=== PATIENT | female | born 1950 ===

== ENCOUNTER 2021-07-27 10:00 | Outpatient (RCR) | payer MEDICARE, SELFPAY | END 2021-07-27 14:04 | disposition home or self-care (01) | LOC: HO.PTCHIC 10:00 | PROVIDERS: PCP Family Medicine; Visit Provider Family Medicine | DX: M62.830 Muscle spasm of back (principal) | CPT/HCPCS: 97110; 97140; 97150; 97161 ==

== ENCOUNTER 2021-11-11 09:49 | Emergency (ER) | payer MEDICARE, SELFPAY ==
--- NOTE | ~2021-11-11 | CT_ITS ---
EXAMINATION: HEAD CT, FACIAL BONE CT AND CERVICAL SPINE CT CLINICAL INFORMATION: Trauma. Fall down stairs. COMPARISON: None TECHNIQUE: Axial images through the head, facial bone and cervical spine without contrast. Sagittal and coronal reconstructions on the technologist workstation were performed. This CT examination was performed using dose optimization techniques as appropriate, variously including the following: *Automated exposure control *Adjustment of mA and/or kV according to patient size (this includes techniques or standardized protocols for targeted exams where dose is matched to indication/reason for exam; i.e. extremities or head) *Use of iterative reconstruction technique Patient dose 131 0 mg/cm. FINDINGS: Head CT: There is no evidence of an extra-axial collection. There is no evidence of intra-axial extra-axial hemorrhage. The ventricles and extra-axial CSF spaces are appropriate. Lemos-white matter differentiation is normal. No mass, mass effect or infarct is seen. No skull fracture is seen. Facial bones: There are bilateral acute appearing nasal bone fractures. No other fracture is seen. Nasal septum is deviated to the left. There is preseptal soft tissue swelling over the inferior right orbit. Post septal soft tissues are normal. Paranasal sinuses, mastoid air cells and middle ears are clear. The temporomandibular joints are normal. Cervical spine: There is mild 2 mm anterior subluxation of C3 with respect to C4. Bone alignment is otherwise normal. No fracture or dislocation is seen. There is degenerative spondylosis and degenerative disc disease at C4-C5, C5-C6 and C6-C7. There are degenerative changes at the C1 dens articulation. There is bilateral facet arthritis, right greater than left. Prevertebral soft tissues are normal. There is pleural and parenchymal scarring at the lung apices. CT/CT cervical spine wo IV con IMPRESSION: Head CT: No acute findings Facial bone CT: Bilateral nasal bone fractures. Preseptal soft tissue swelling over the inferior right orbit. Post septal orbital soft tissues are normal. Cervical spine: Degenerative changes. No fracture or dislocation.
--- NOTE | ~2021-11-11 | XR_ITS ---
EXAMINATION: CR X-RAY HAND AND WRIST RIGHT CLINICAL INFORMATION: Right hand and wrist pain. COMPARISON: None TECHNIQUE: 3 views of the right hand and wrist are obtained. FINDINGS: There is acute, mildly displaced and angulated fracture of the distal radial metaphysis with angulation, apex ventrally. There is mild widening of the distal radial ulnar joint. The distal ulna appears intact. There is moderate soft tissue swelling. XR/XR hand wrist RT IMPRESSION: Acute distal radial metaphysis fracture as detailed above.
--- NOTE | ~2021-11-11 | XR_ITS ---
EXAMINATION: XR KNEE, LEFT CLINICAL INFORMATION: Left knee pain. COMPARISON: None TECHNIQUE: Four views of the left knee. FINDINGS: Mild tricompartmental degenerative joint changes are seen. There is no acute fracture, dislocation or joint effusion. The soft tissues are unremarkable. XR/XR knee LT 4V IMPRESSION: Mild tricompartmental degenerative joint changes. No acute abnormality.
--- NOTE | ~2021-11-11 | CT_ITS ---
EXAMINATION: CT CHEST WITHOUT CONTRAST CLINICAL INFORMATION: Fall. Rule out rib fracture. COMPARISON: None TECHNIQUE: Multidetector volumetric CT imaging of the chest was done. Axial MIP volume rendering provided. Sagittal and coronal reformatted images were obtained. This CT examination was performed using dose optimization techniques as appropriate, variously including the following: *Automated exposure control *Adjustment of mA and/or kV according to patient size (this includes techniques or standardized protocols for targeted exams where dose is matched to indication/reason for exam; i.e. extremities or head) *Use of iterative reconstruction technique DLP: 278 unremarkable mGy-cm FINDINGS: LUNGS: There is biapical pleural and parenchymal scarring. The lungs are otherwise clear. MEDIASTINUM: The mediastinum is normal. Normal heart size. No pericardial effusion. Normal caliber thoracic aorta. No adenopathy. No mediastinal fluid. CORONARY ARTERY CALCIFICATION: None visualized on this study. PLEURA: There is no pleural effusion. No pneumothorax. AXILLA: No lymphadenopathy. UPPER ABDOMEN: See report from CT of the abdomen and pelvis the same day OSSEOUS STRUCTURES: There are degenerative changes of the thoracic spine. No fracture is seen. CT/CT chest wo IV con IMPRESSION: No acute findings. Fleischner guidelines were followed.
--- NOTE | ~2021-11-11 | MR_ITS ---
EXAMINATION: MR CERVICAL SPINE WITHOUT CONTRAST CLINICAL INFORMATION: C3 subluxation COMPARISON: Same day CT cervical spine TECHNIQUE: MRI of the cervical spine was obtained using routine sequences without contrast. FINDINGS: Cervical straightening. Trace stepwise anterolisthesis of C3 on C4 and C4 on C5, trace retrolisthesis of C5 on C6, and trace anterolisthesis of C7 on T1. There is 2 mm anterolisthesis of C3 on C4. No suspicious marrow signal or focal osseous lesion. The vertebral body heights are maintained. Mild multilevel degenerative disc space narrowing. The cervical spinal cord is normal in caliber and signal No prevertebral edema. The anterior and posterior discoligamentous structures are intact. No epidural fluid collection or hematoma. Limited evaluation of the soft tissues of the neck without demonstrated abnormalities. The flow voids of the major cervical vessels are maintained. Normal appearance of the cervicomedullary junction and visualized posterior fossa SPINAL LEVELS: C2-C3: Severe right facet arthropathy. No significant spinal canal or neural foraminal narrowing C3-C4: Anterolisthesis. Severe right facet arthropathy and uncovertebral hypertrophy. No significant spinal canal stenosis. Moderate right neural foraminal narrowing. C4-C5: Anterolisthesis. Severe bilateral facet arthropathy. No significant spinal canal or neural foraminal narrowing C5-C6: Disc osteophyte complex, mild facet arthropathy, uncovertebral hypertrophy. Mild to moderate bilateral neural foraminal narrowing. Effacement of the ventral thecal sac without significant canal stenosis. C6-C7: Disc osteophyte complex and uncovertebral hypertrophy. Mild bilateral neural foraminal narrowing. No significant spinal canal stenosis C7-T1: No significant spinal canal or neural foraminal narrowing MR/MR cervical spine wo con IMPRESSION: 1. No evidence of traumatic discoligamentous injury of the cervical spine. Multilevel mild spondylolisthesis including 2 mm anterolisthesis of C3 on C4 is degenerative in nature and related to degenerative facet disease. 2. Multiple degenerative changes of the cervical spine as detailed above. No significant spinal canal stenosis, cord compression, or cord signal abnormality.
--- NOTE | ~2021-11-11 | CT_ITS ---
EXAMINATION: CT ABDOMEN AND PELVIS WITHOUT CONTRAST CLINICAL INFORMATION: Fall down stairs. Question pelvic or hip fracture. COMPARISON: None TECHNIQUE: Multidetector volumetric imaging was performed from the superior aspect of the liver through the pubic symphysis. Sagittal and coronal reformatted images were obtained on the technologist's workstation. This CT examination was performed using dose optimization techniques as appropriate, variously including the following: *Automated exposure control *Adjustment of mA and/or kV according to patient size (this includes techniques or standardized protocols for targeted exams where dose is matched to indication/reason for exam; i.e. extremities or head) *Use of iterative reconstruction technique DLP: 509 mGy-cm FINDINGS: LUNG BASES: The visualized lung bases are unremarkable. LIVER, GALLBLADDER, AND BILIARY TREE: The liver is slightly enlarged and low in attenuation suggestive of fatty infiltration. Small calcification in the right lobe. No focal liver lesion or biliary duct dilatation. Normal gallbladder. PANCREAS: Unremarkable. SPLEEN: Unremarkable. ADRENAL GLANDS: Unremarkable. KIDNEYS AND URETERS: The kidneys are normal in size, shape, and attenuation. No hydronephrosis, hydroureter, or calculi seen. No perinephric stranding. BLADDER: Unremarkable. GASTROINTESTINAL TRACT: The small and large bowel are unremarkable. The appendix is not seen. No ascites or free air.. ABDOMINAL WALL: No significant hernia is appreciated. LYMPH NODES: Normal. VASCULAR: Unremarkable. PELVIC VISCERA: Unremarkable. OSSEOUS STRUCTURES: Degenerative changes of the spine and hip joints. No fracture or dislocation. CT/CT abdomen pelvis wo IV con IMPRESSION: No acute findings. Degenerative changes of the spine and hip joints. No fracture or dislocation. Fleischner guidelines were followed.
[2021-11-11 10:00] VITALS: BP 114/73; PULSE 70; RESP 18; TEMP 36.7; O2SAT 97
[2021-11-11 10:04] VITALS: BP 114/73; BP 123/74; PULSE 67; PULSE 97; RESP 16; TEMP 36.7; O2SAT 97; O2SAT 99; BMI 23.7
--- NOTE | 2021-11-11 10:11 | PC.NURSE ---
Addendum entered by Brunilda Willis 11/11/21 10:21: Pt is A AND O X 4. Pupils are PERLLA. LS are clear, resp even and non-labored, heart sound regular,ablations and small amount of dry blood noted around the nose. No hematoma noted. Pt has a c-collar intact, Pt c/o of numbness in the right cheek. bowel sounds present in all 4 quads, non tender. skin is pink, dry and warm. No edema noted, equal strength in all extremities,brace to the right forearm placed by EMS. Proximately 1/2 inch abrasion noted on the left knee. Pt also c/0 of pain in the right knee and thumb. MLP (LOBITO) aware. Pt aware of plan of care. Original Note: Pt is A & O X 4. LS are clear, resp is even and nonlabored, skin is red, dry and warm. no edema. equal strength in all extremities, i\2 inche of a scratch noted on the left knee. Numbness in right cheek, pain in right thumb and nose. Scratch michaels and a small amount of dry blood noted around the nose.
--- NOTE | 2021-11-11 10:21 | ED_ITS ---
HPI - General Adult General Chief complaint: Fall Stated complaint: FALL Time Seen by Provider: 11/11/21 10:05 Source: patient Mode of arrival: ambulatory Limitations: no limitations History of Present Illness HPI narrative: 71 yold female with pmh of peptic ulcer presents to the ED for fall. patient states she was at home dong work and than she fell down the stairs and landng on her face. patient admits to nasal bleeding that resolved. Patient states now having right wrist and left knee pain. patient denies any chest pain, shortness of breath, abdominal pain, dizziness, or headache before faling. patient states she tripped over her shoes and caused her to roll down the stairs. Related Data Previous Rx's Medication Instructions Recorded clindamycin HCl 300 mg capsule 300 mg PO TID 10 days #30 caps 11/11/21 oxycodone 5 mg capsule 5 mg PO TID PRN pain 3 days #9 caps 11/11/21 Allergies Allergy/AdvReac Type Severity Reaction Status Date / Time NSAIDS (Non-Steroidal AdvReac Abdominal Verified 11/11/21 10:11 Anti-Inflamma Pain Review of Systems Review of Systems: RIght wrist pain, left knee pain, resolved nasal bleed. Yes all other systems are reviewed and are negative [facility] Social History Social History Patient Tobacco Use Status: Never used Tobacco Advance Directives: Yes Advance Directives Information Provided: Yes Advance Directives on File: No Physical Exam ED Vital Signs: Vital Signs - 24 hr 11/11/21 10:00 11/11/21 10:04 11/11/21 13:32 Temperature 98.0 F 98.0 F Pulse Rate 70 67 66 Respiratory Rate 18 16 Blood Pressure 114/73 114/73 149/75 H Pulse Oximetry 97 97 98 Oxygen Delivery Method Room Air Room Air Room Air 11/11/21 14:59 Temperature 97.7 F Pulse Rate 71 Respiratory Rate 12 Blood Pressure 153/70 H Pulse Oximetry 97 Oxygen Delivery Method Room Air BMI result Body Mass Index 23.7 Const General: cooperative, healthy appearing, comfortable, no acute distress, well developed, alert, awake and Physically active Orientation/consciousness: patient oriented x3 HENMT Head: Yes normal to inspection, Yes No palpable skull fracture present and Yes normocephalic Ears: hearing grossly normal bilaterally, external ears normal, TM's normal bilaterally, EAC's normal, mastoids normal and no periauricular adenopathy General nose exam: Epistaxis present (dried blood. bleeding resolved) bilaterally Eyes General: appearance normal, both eyes and all related structures Neck Neck: Yes normal visual inspection, Yes full ROM, Yes no lymphadenopathy, Yes no meningeal signs, Yes trachea midline, Yes supple, No anterior neck swelling and No tender Chest Chest palpation & inspection: normal inspection of the chest and normal palpation of entire chest wall Resp Effort & Inspection: normal respiratory effort and able to speak in complete sentences Auscultation: clear to auscultation bilaterally Cardio Jugular venous distension: no JVD Heart sounds: S1 normal heart sound present and S2 normal heart sound present GI Inspection: Yes normal to inspection and No abdominal wall ecchymosis Palpation (GI): Soft to palpation, not firm, nontender, no guarding and not rigid General: No CVA tenderness and Yes no CVA tenderness Back/Spine/Pelvis Back: no CVA tenderness, No CVA tenderness and No back tenderness Skin General skin exam: no rashes or lesions noted and elasticity normal Neuro General: patient oriented x3, gait normal, no meningeal signs and CN's II-XI intact bilaterally Cranial nerves: Yes CN's II-XII intact bilaterally Extrem Other: Patient has complete range of motion of bilateral lower extremities. Elbow/forearm/wrist images: 1. tenderness on palpation. Patient has capillary refill intact of all fingers. Has sensation in all fingers. Vascular exam is intact. Motor exam limited due to pain. Knee images: 1. mild tenderness on palpation. negative for swelling/redness. Psych Appearance: grossly normal, well kempt and not disheveled Course Course Course Narrative: Mechanical fall. Will send for imaging. Oxycodone ordered Reevaluation(s) Reevaluation #1: Patient images came back. Head CT chest CT and on CT came back normal. Hand wrist x-ray shows radial fracture. Spoke with orthopedic RAMESH Reyes who states patient will need schedule surgery sometime this week after improving swelling. She recommend good splint and outpatinet follow up. SPoke with Dr. Jerez covering attendant does not recommend Reduction. RAMESH Reyes will call patient for office clinic appointment. Cervical spine CT shows subluxation of C3 over C4. Patient has severe arthritis but unaware if subluxation is new. Will send for MR. Patient has nasal fracture. Time: 13:02 Reevaluation #2: Patient placed in splint. Cervical spine MRI negative for subluxation. Patient will be discharged. Patient can walk around. Placed Case Management order for follow-up and to add possible Home Services VN if needed. patient can not tylenol due to liver as per patient. patient states allergic reaction to amoxicillin. Time: 16:02 Medical Decision Making MDM Narrative Medical decision making narrative: nasal fracture. wrist fracture Discharge Plan Discharge Clinical Impression: Fracture, nasal, Fracture of wrist Patient Disposition: Home, Self-Care Additional Instructions: You will need follow up with ENT specialists for nasal fracture. ALso you will need follow up with [facility] for wrist surgeon. Return to the ED any heada edgar, bluish/black discloration of finger, abdominal pain, rectal bleeding, coughing/vomitting blood, chest pain, shortness of breath, or any other concerning symptoms. Recommend ice on right side of face to help with swelling. Prescriptions: New oxycodone 5 mg capsule 5 mg PO TID PRN (Reason: pain) 3 Days Qty: 9 0RF Rx Instructions: Partial Fill upon patient request. side effect is drowsiness. clindamycin HCl 300 mg capsule 300 mg PO TID 10 Days Qty: 30 0RF [place] [facility] [place] [facility] [Provider Group] (Right wrist fracture) Pedro Winter [Physician] - (Bilateral nasal fractures) Stand Alone Forms: Work/School Release Print Language: Yi
--- NOTE | 2021-11-11 11:11 | PC.NURSE ---
Pt went to xray via stretcher.
--- OUTSIDE RECORDS SUMMARY | 2021-11-11 11:23 | XMS_ITS | Continuity of Care Document ---
:1950 Author Organization [facility] Address [address] [place] [address]- Care Team Providers Name Role Phone Linda XIE, Gayle Francois Primary Care Physician Encounter [facility] Date(s): 08/04/19 - 08/11/19 [facility] [address] [place] [address]- [facility] Attending Physician: Gayle Mckeon MD Allergies, Adverse Reactions, Alerts Substance Reaction Severity Status doxycycline GI effects Active amoxicillin hives Active omeprazole Active Alomide Active Latex Active Lactose Active Immunizations Given and Recorded Vaccine Date Status Refusal Reason Influenza Virus Vaccine (oldterm) 11/23/18 Recorded pneumococcal 23-valent vaccine1 05/11/18 Given hepatitis B adult vaccine2 05/11/18 Given zoster vaccine, inactivated 04/23/18 Recorded influenza virus vaccine, inactivated3 11/12/17 Recorded influenza virus vaccine, inactivated4, 5 03/30/16 Recorde d influenza virus vaccine, inactivated6 11/09/14 Recorded influenza virus vaccine, inactivated 11/20/13 Given influenza virus vaccine, inactivated7 11/12/12 Given influenza virus vaccine, inactivated8 11/05/11 Given influenza virus vaccine, inactivated9 12/29/10 Given influenza virus vaccine, [id number] 11/14/09 Given pneumococcal 13-valent vaccine 09/14/15 Given tetanus/diphtheria/pertussis, acel(Tdap)11 07/21/14 Given Fluzone (oldterm) 11/08/08 Given tetanus-diphtheria toxoids (Td)12 02/10/07 Given 1Result Comment: [facility]#[id number] Comment: [facility]#[id number] Comment: [12/01/2017] Done at [facility]. High dose.4Location History: [facility] [address] [place], [place] [address]Ltlgjg Comment: [04/02/2016] No route or location specified.6Result Comment: [11/17/2014] [facility] [id number] Comment: [11/12/2012] Vis given [id number] Note: VIM dated 08/12/11 GIVEN TODAY9 Admin Note: 09/04/10 VIM GIVEN TODAY [id number] Note: vis given 09-20-910 Result Comment: [07/21/2014] ins waiver [id number] Note: [facility] vim 12/29/07 Medications Evi By Mouth, 0 Refills, Maintenance, 10/27/18 10:19:53 EDT Start Date: 10/27/18 Status: OrderedCompression Stockings See Instructions, # 2 pair, Refills 1, Tot. Refills 1, Maintenance, surgical, thigh high length 20-30 mm Hg, 06/03/13 11:21:37 Start Date: 06/03/13 Status: Ordereddiclofenac 1% topical gel = 2 Gm, Topically, 4 times a day, # 100 Gm, 1 Refills, Maintenance, 02/19/19 12:11:00 EST, [facility] # [facility], 160, cm, 02/17/19 16:12:00 EST, Height, 60.2, kg, 11/18/18 8:50:00 EDT, Dry Weight Start Date: 02/19/19 Status: Ordereddiclofenac sodium 75 mg oral delayed release tablet 1 tablet = 75 mg, By Mouth, 2 times a day, with food, # 10 tablet, 0 Refills, Maintenance, 02/17/19 16:29:00 EST, EC Tablet, [facility] # [facility], 160, cm, 02/17/19 16:12:00 EST, Height, 60.2, kg, 11/18/18 8:50:00 EDT, Dry Weight Start Date: 02/17/19 Stop Date: 02/22/19 Status: Orderedestradiol 0.1 mg/g vaginal cream See Instructions, Insert 1 gram Vaginally weekly or 1/2 gram twice weekly 90 days, # 42.5 Gm, 3 Refills, Maintenance, 11/16/18 14:32:49 EDT, please dispense compounded med; we understand that FDA approved med is available; we choose this med as it is... Start Date: 11/16/18 Status: OrderedFamotidine By Mouth, Daily, 0 Refills, Maintenance, 01/06/18 11:35:20 EST Start Date: 01/06/18 Status: Orderedfamotidine 20 mg oral tablet 20 mg, 1, tablet, By Mouth, 2 times a day, # 180 tablet, Refills 3, Tot. Refills 3, Maintenance, 10/16/18 16:38:27 EDT, Route to Pharmacy Electronically, [id number], [facility] Start Date: 10/16/18 Status: OrderedKnee Support See Instructions, # 1 each, Maintenance, R knee pn Playmaker 2, S REF: [id number], 05/24/13 17:02:10,Compound Start Date: 05/24/13 Status: OrderedPrevacid 30 mg oral enteric coated capsule 1 capsule = 30 mg, By Mouth, Daily, # 90 capsule, 3 Refills, Maintenance, 04/26/19 12:56:00 EDT, EC Capsule, [facility] # [facility], 163.5, cm, 02/24/19 15:19:00 EST, Height, 60.2, kg, 11/18/18 8:50:00 EDT, Dry Weight Start Date: 04/26/19 Status: OrderedRestasis 0.05% ophthalmic emulsion 1 drops, Eyes, Both, Every 12 hours, 0 Refills, Maintenance, 06/23/15 14:35:19 Start Date: 06/23/15 Status: OrderedSingulair By Mouth, Daily before dinner, 0 Refills, Maintenance Start Date: 07/14/12 Status: Ordered Problem List Condition Effective Dates Status Health Status Informant Atrophic vaginitis(Confirmed) Active Esophageal spasm(Confirmed) Active Low back syndrome(Confirmed) Active Migraine(Confirmed) Active Osteoarthritis(Confirmed) Active Osteoporosis(Confirmed) Active Seasonal allergic rhinitis(Confirmed) Active Varicose veins(Confirmed) 11/08/08 Active Vital Signs Most recent to oldest [Reference Range]: 1 Height 163.5 cm (08/04/19 9:27 AM) Social History Social History Type Response Smoking Status Never smoker; Tobacco user i n household: No entered on: 07/21/13 Sex
--- OUTSIDE RECORDS SUMMARY | 2021-11-11 11:23 | XMS_ITS | Continuity of Care Document ---
:1950 Author Organization [facility] Address [address] [place] [address]- Care Team Providers Name Role Phone Linda XIE, Gayle Francois Primary Care Physician Encounter [facility] Date(s): 08/04/19 - 09/03/19 [facility] [address] [place] [address]- [facility] Attending Physician: AdmtrRaysa Allergies, Adverse Reactions, Alerts Substance Reaction Severity Status doxycycline GI effects Active amoxicillin hives Active Lactose Active omeprazole Active Alomide Active Latex Active Immunizations Given and Recorded Vaccine Date [...] vaccine, inactivated9 12/29/10 Given influenza virus vaccine, [id number] 11/14/09 Given pneumococcal 13-valent vaccine 09/14/15 Given tetanus/diphtheria/pertussis, acel(Tdap)11 07/21/14 Given Fluzone (oldterm) 11/08/08 Given tetanus-diphtheria toxoids (Td)12 02/10/07 Given 1Result Comment: [facility]#[id number] Comment: [facility]#[id number] Comment: [12/01/2017] Done at [facility]. High dose.4Location History: [facility] [address] [place], [place] [address]Ifaiij Comment: [04/02/2016] No route or location specified.6Result Comment: [11/17/2014] [facility] [id number] Comment: [11/12/2012] Vis given [id number] Note: VIM dated 08/12/11 GIVEN TODAY9 Admin Note: 09/04/10 VIM GIVEN TODAY [id number] Note: vis given 09-20-910 Result Comment: [07/21/2014] ins waiver [id number] Note: [facility] vim 12/29/07 Medications Evi [...] Gm, 1 Refills, Maintenance, 02/19/19 12:11:00 EST, [facility] # [facility], 160, cm, 02/17/19 16:12:00 EST, Height, 60.2, kg, 11/18/18 8:50:00 EDT, Dry Weight Start Date: 02/19/19 Status: Ordereddiclofenac sodium 75 mg oral delayed release tablet 1 tablet = 75 mg, By Mouth, 2 times a day, with food, # 10 tablet, 0 Refills, Maintenance, 02/17/19 16:29:00 EST, EC Tablet, [facility] # [facility], 160, cm, 02/17/19 [...] 10/16/18 16:38:27 EDT, Route to Pharmacy Electronically, [id number], [facility] Start Date: 10/16/18 Status: OrderedKnee Support See Instructions, # 1 each, Maintenance, R knee pn Playmaker 2, S REF: [id number], 05/24/13 17:02:10,Compound Start Date: 05/24/13 Status: OrderedPrevacid 30 mg oral enteric coated capsule 1 capsule = 30 mg, By Mouth, Daily, # 90 capsule, 3 Refills, Maintenance, 04/26/19 12:56:00 EDT, EC Capsule, [facility] # [facility], 163.5, cm, 02/24/19 [...] allergic rhinitis(Confirmed) Active Varicose veins(Confirmed) 11/08/08 Active Social History Social History Type Response Smoking Status Never smoker; Tobacco user i n household: No entered on: 07/21/13 Sex
--- OUTSIDE RECORDS SUMMARY | 2021-11-11 11:23 | XMS_ITS | Continuity of Care Document ---
:1950 Author Organization [facility] Address [address] [place] [address], [address] [place] [address]- Care Team Providers Name Role Phone Linda XIE, Gayle Francois Primary Care Physician Encounter [facility] Date(s): 01/22/21 - 02/21/21 [facility] [address] [place] [address], [address] [place] [address] Attending Physician: Raysa Rodgers Admitting Physician: Raysa Rodgers Referring Physician: AdmtrRaysa Allergies, Adverse Reactions, Alerts Substance Reaction Severity Status doxycycline GI effects Active amoxicillin hives Active omeprazole Active Lactose Active Alomide Active Latex Active Immunizations Given [...] vaccine, inactivated9 12/29/10 Given influenza virus vaccine, [id number] 11/14/09 Given pneumococcal 13-valent vaccine 09/14/15 Given tetanus/diphtheria/pertussis, acel(Tdap)11 07/21/14 Given Fluzone (oldterm) 11/08/08 Given tetanus-diphtheria toxoids (Td)12 02/10/07 Given 1Result Comment: [facility]#[id number] Comment: [facility]#[id number] Comment: [12/01/2017] Done at [facility] High dose.4Location History: [facility] [address] [place], [place] [address]Fsckkk Comment: [04/02/2016] No route or location specified.6Result Comment: [11/17/2014] [facility] [id number] Comment: [11/12/2012] Vis given [id number] Note: VIM dated 08/12/11 GIVEN TODAY9 Admin Note: 09/04/10 VIM GIVEN TODAY [id number] Note: vis given 09-20-910 Result Comment: [07/21/2014] ins waiver [id number] Note: [facility] vim 12/29/07 Medications betamethasone topical dipropionate 0.05% cream 0 Refills, Maintenance, 06/21/20 16:29:00 EDT, Partial fill upon patient request if the prescriptionis for a schedule II opioid drug. Start Date: 06/21/20 Status: OrderedCompression Stockings See Instructions, # 2 pair, Refills 1, Tot. Refills 1, Maintenance, surgical, thigh high length 20-30 mm Hg, 06/03/13 11:21:37 Start Date: 06/03/13 Status: OrderedEstrace Vaginal Cream 0.1 mg/g See Instructions, 1 Gm Vaginally Daily at bedtime for two weeks then twice weekly, # 42.5 Gm, 4 Refills, Maintenance, 01/22/21 11:54:00 EST, [facility], Patient sensitive to inactive ingredients of manufacturers drugs., 163.5, c... Start Date: 01/22/21 Status: Orderedestradiol 0.1 mg/g vaginal cream See Instructions, Insert 1 gram Vaginally weekly or 1/2 gram twice weekly 90 days, # 42.5 Gm, 4 Refills, Maintenance, 06/13/20 10:53:00 EDT, [facility], please dispense compounded med; we understand that FDA approved med is avai... Start Date: 06/13/20 Status: Orderedhydrocortisone 2.5% topical cream 0 Refills, Maintenance, 06/21/20 16:29:00 EDT, Partial fill upon patient request if the prescriptionis for a schedule II opioid drug. Start Date: 06/21/20 Status: OrderedKnee Support See Instructions, # 1 each, Maintenance, R knee pn Playmaker 2, S REF: [id number], 05/24/13 17:02:10,Compound Start Date: 05/24/13 Status: OrderedPrevacid 30 mg oral enteric coated capsule 1 capsule = 30 mg, By Mouth, Daily, # 90 capsule, 3 Refills, Maintenance, 04/13/20 13:53:00 EST, EC Capsule, [facility], 163.5, cm, 01/27/20 9:12:00 EST, Height, 60.2, kg, 11/18/18 8:50:00 EDT, Dry Weight Start Date: 04/13/20 Status: OrderedRestasis 0.05% ophthalmic emulsion 1 drops, Eyes, Both, Every 12 hours, 0 Refills, Maintenance, 06/23/15 14:35:19 Start Date: 06/23/15 Status: OrderedSingulair By Mouth, Daily before dinner, 0 Refills, Maintenance Start Date: 07/14/12 Status: Ordered Problem List Condition Effective Dates Status Health Status Informant Atrophic vaginitis(Confirmed) Active Esophageal spasm(Confirmed) Active GERD with esophagitis(Confirmed) Active Low back syndrome(Confirmed) Active Migraine(Confirmed) Active NAFLD (nonalcoholic fatty liver Active disease)(Confirmed) Osteoarthritis(Confirmed) Active Osteoporosis(Confirmed) Active Seasonal allergic rhinitis(Confirmed) Active Varicose veins(Confirmed) 11/08/08 Active Social History Social History Type Response Smoking Status Never smoker; Tobacco user i n household: No entered on: 07/21/13 Sex
--- OUTSIDE RECORDS SUMMARY | 2021-11-11 11:23 | XMS_ITS | Continuity of Care Document ---
:1950 Author Organization [facility] Address [address] [place] [address]- Care Team Providers Name Role Phone Linda XIE, Gayle Francois Primary Care Physician [phone] Encounter [facility] Date(s): 09/17/21 - 10/17/21 [facility] [address] [place], [place] [address] Allergies, Adverse Reactions, Alerts Substance Reaction Severity Status doxycycline GI effects Active amoxicillin hives Active omeprazole Active Alomide Active Latex Active Lactose Active Immunizations Given and Recorded Vaccine Date Status Refusal Reason SARS-CoV-2 mRNA ([id number]) vax 06/06/21 Recorde d influenza virus vaccine, inactivated 12/07/20 Recorded influenza virus vaccine, inactivated 11/14/18 Recorded influenza virus vaccine, inactivated1 11/12/17 Recorded influenza virus vaccine, inactivated 11/17/16 Recorded influenza virus vaccine, inactivated2, 3 03/30/16 Recorde d influenza virus vaccine, inactivated4 11/09/14 Recorded influenza virus vaccine, inactivated 11/20/13 Given influenza virus vaccine, inactivated5 11/12/12 Given influenza virus vaccine, inactivated6 11/05/11 Given influenza virus vaccine, inactivated7 12/29/10 Given influenza virus vaccine, inactivated8 11/14/09 Given SARS-CoV-2 (COVID-19) mRNA BNT-162b2 vac 11/04/20 Recorde d SARS-CoV-2 (COVID-19) mRNA BNT-162b2 vac 04/29/20 Recorde d SARS-CoV-2 (COVID-19) mRNA BNT-162b2 vac 04/08/20 Recorde d Influenza Virus Vaccine (oldterm) 11/23/18 Recorded pneumococcal 23-valent vaccine9 05/11/18 Given hepatitis B adult [id number] 05/11/18 Given zoster vaccine, inactivated 04/23/18 Recorded pneumococcal 13-valent vaccine 09/14/15 Given tetanus/diphtheria/pertussis, acel(Tdap)11 07/21/14 Given Fluzone (oldterm) 11/08/08 Given tetanus-diphtheria toxoids (Td)12 02/10/07 Given 1Result Comment: [12/01/2017] Done at [facility]. High dose.2Location History: [facility] [address] [place], [place] [address]Jznugy Comment: [04/02/2016] No route or location specified.4Result Comment: [11/17/2014] [facility] [id number] Comment: [11/12/2012] Vis given Zgqn2Kuquj Note: VIM dated 08/12/11 GIVEN TODAY7 Admin Note: 09/04/10 VIM GIVEN TODAY [id number] Note: vis given Result Comment: [facility] [place] 2]#[id number] Comment: [facility][[place] 2]#[id number] Comment: [07/21/2014] ins waiver [id number] Note: [facility] vim 12/29/07 Medications betamethasone [...] Refills, Maintenance, 01/22/21 11:54:00 EST, [facility], Patient sensitive to inactive ingredients of manufacturers drugs., 163.5, c... Start Date: 01/22/21 Status: Orderedestradiol 0.1 mg/g vaginal cream See Instructions, Insert 1 gram Vaginally weekly or 1/2 gram twice weekly 90 days, # 42.5 Gm, 4 Refills, Maintenance, 06/13/20 10:53:00 EDT, [facility], please dispense compounded med; we understand that FDA approved med is avai... Start Date: 06/13/20 Status: Orderedfamotidine 20 mg oral tablet 20 mg, 1, tablet, By Mouth, 2 times a day, # 180 tablet, Refills 3, Tot. Refills 3, Maintenance, 04/27/21 10:46:00 EDT, Route to Pharmacy Electronically, [facility] # [facility], 163.5, cm, 01/22/21 11:50:00 EST, Height, 59.5, kg, 01/22/21 11:50:00 EST, D... Start Date: 04/27/21 Status: Orderedhydrocortisone 2.5% topical cream 0 Refills, [...] Daily, # 90 capsule, 3 Refills, Maintenance, 04/20/21 9:59:00 EST, EC Capsule, [facility] # [facility], 163.5, cm, 01/22/21 11:50:00 EST, Height, 59.5, kg, 01/22/21 11:50:00 EST, Dry Weight Start Date: 04/20/21 Status: OrderedRestasis 0.05% ophthalmic emulsion 1 drops, [...] n household: No entered on: 07/21/13 Sex Care Team PersonnelName: Linda XIE, Gayle Francois Address: [address] [place] [id number]
--- OUTSIDE RECORDS SUMMARY | 2021-11-11 11:23 | XMS_ITS | Continuity of Care Document ---
:1950 Author Organization [facility] Address [address] [place] [address]- Care Team Providers Name Role Phone Linda XIE, Gayle Francois Primary Care Physician [place] [facility] [place] 06[place]30/21 [facility] [address] [place], [place] [address] Attending Physician: AdmtrRaysa Allergies, Adverse Reactions, Alerts [...] vaccine, inactivated9 12/29/10 Given influenza virus vaccine, yaygcxdoipe69 11/14/09 Given pneumococcal 13-valent vaccine 09/14/15 Given tetanus/diphtheria/pertussis, acel(Tdap)11 07/21/14 Given Fluzone (oldterm) 11/08/08 Given tetanus-diphtheria toxoids (Td)12 02/10/07 Given 1Result Comment: [facility]#[id number] Comment: [facility]#[id number] Comment: [12/01/2017] [facility] at [facility] High dose.4Location History: [facility] [address] [place], [place] [address]Zfpvnv Comment: [04/02/2016] No route or location specified.6Result Comment: [11/17/2014] [facility] aziuacw8Fshbpp Comment: [11/12/2012] Vis given Gnrk2Yvnej Note: VIM dated 08/12/11 GIVEN TODAY9 Admin Note: 09/04/10 VIM GIVEN TODAY [id number] Note: vis given 09-20-910 Result Comment: [07/21/2014] ins waiver cjbtpb20Hivly Note: [employer] vim 12/29/07 Medications betamethasone [...] Refills, Maintenance, 01/22/21 11:54:00 EST, [facility], Patient sensitive to inactive ingredients of manufacturers drugs., 163.5, c... Start Date: 01/22/21 Status: Orderedestradiol 0.1 mg/g vaginal cream See Instructions, Insert 1 gram Vaginally weekly or 1/2 gram twice weekly 90 days, # 42.5 Gm, 4 Refills, Maintenance, 06/13/20 10:53:00 EDT, [facility], please dispense compounded med; we understand that FDA approved med is avai... Start Date: 06/13/20 Status: Orderedfamotidine 20 mg oral tablet 20 mg, 1, tablet, By Mouth, 2 times a day, # 180 tablet, Refills 3, Tot. Refills 3, Maintenance, 04/27/21 10:46:00 EDT, Route to Pharmacy Electronically, [facility], 163.5, cm, 01/22/21 11:50:00 [...] Refills, Maintenance, 04/20/21 9:59:00 EST, EC Capsule, [facility], 163.5, cm, 01/22/21 [...]
--- OUTSIDE RECORDS SUMMARY | 2021-11-11 11:23 | XMS_ITS | Continuity of Care Document ---
:1950 Author Organization [facility] Address [address] [place] [address]- Care Team Providers Name Role Phone Linda XIE, Gayle Francois Primary Care Physician Encounter [facility] [place] Date(s): 08/17/20 - 09/16/20 [facility] [address] [place], [place] [address] Allergies, Adverse Reactions, Alerts Substance Reaction Severity [...] vaccine, inactivated9 12/29/10 Given influenza virus vaccine, jbunfwlnghc25 11/14/09 Given pneumococcal 13-valent vaccine 09/14/15 Given tetanus/diphtheria/pertussis, acel(Tdap)11 07/21/14 Given Fluzone (oldterm) 11/08/08 Given tetanus-diphtheria toxoids (Td)12 02/10/07 Given 1Result Comment: [facility]#[id number] Comment: [facility]#[id number] Comment: [12/01/2017] Done at [facility] High dose.4Location History: [facility] [address] [place], [place] [address]Fxbwba Comment: [04/02/2016] No route or location specified.6Result Comment: [11/17/2014] [facility] qrcctyh9Nosoas Comment: [11/12/2012] Vis given Uzde0Qsdge Note: VIM dated 08/12/11 GIVEN TODAY9 Admin Note: 09/04/10 VIM GIVEN TODAY TVNKQROQ02Nzaqh Note: vis given 09-20-910 Result Comment: [07/21/2014] ins waiver hvwihf31Tzgwb Note: [employer] vim 12/29/07 Medications betamethasone topical dipropionate 0.05% cream 0 Refills, Maintenance, 06/21/20 16:29:00 EDT, Partial fill upon patient request if the prescriptionis for a schedule II opioid drug. Start Date: 06/21/20 Status: OrderedCompression Stockings See Instructions, # 2 pair, Refills 1, Tot. Refills 1, Maintenance, surgical, thigh high length 20-30 mm Hg, 06/03/13 11:21:37 Start Date: 06/03/13 Status: Orderedestradiol 0.1 mg/g vaginal cream See Instructions, Insert 1 gram Vaginally weekly or 1/2 gram twice weekly 90 days, # 42.5 Gm, 4 Refills, Maintenance, 06/13/20 10:53:00 EDT, [facility], please dispense compounded med; we understand that [...]
--- OUTSIDE RECORDS SUMMARY | 2021-11-11 11:23 | XMS_ITS | Continuity of Care Document ---
:1950 Author Organization [facility] Address [address] [place] [address]- Care Team Providers Name Role Phone Linda XIE, Gayle Francois Primary Care Physician [phone] [place] [facility] [place]20 [place] 07/21/20 [facility] [address] [place], [place] [address] Attending Physician: AdmtrRaysa Allergies, Adverse Reactions, Alerts [...] vaccine, inactivated9 12/29/10 Given influenza virus vaccine, sqeqrevxmfv09 11/14/09 Given pneumococcal 13-valent vaccine 09/14/15 Given tetanus/diphtheria/pertussis, acel(Tdap)11 07/21/14 Given Fluzone (oldterm) 11/08/08 Given tetanus-diphtheria toxoids (Td)12 02/10/07 Given 1Result Comment: [facility]#[id number] Comment: [facility]#[id number] Comment: [12/01/2017] Done at [facility] High dose.4Location History: [facility] [address] [place], [place] [address]Yhgddl Comment: [04/02/2016] No route or location specified.6Result Comment: [11/17/2014] [facility] icqqknw3Bsftdv Comment: [11/12/2012] Vis given Uimn8Ntqrq Note: VIM dated 08/12/11 GIVEN TODAY9 Admin Note: 09/04/10 VIM GIVEN TODAY SEQHLFRG13Naglq Note: vis given 09-20-910 Result Comment: [07/21/2014] ins waiver reqekp24Hjjga Note: [employer] vim 12/29/07 Medications betamethasone [...] Refills, Maintenance, 06/13/20 10:53:00 EDT, [facility], please dispense compounded med; we understand that [...]
--- OUTSIDE RECORDS SUMMARY | 2021-11-11 11:23 | XMS_ITS | Continuity of Care Document ---
:1950 Author Organization [facility] Address [address] [place] [address]- Care Team Providers Name Role Phone Linda XIE, Gayle Francois Primary Care Physician [phone] Encounter [facility] Date(s): 04/20/21 - 05/20/21 [facility] [address] [place] [address] Allergies, Adverse Reactions, Alerts Substance Reaction Severity [...] vaccine, inactivated9 12/29/10 Given influenza virus vaccine, atuurclapdu60 11/14/09 Given pneumococcal 13-valent vaccine 09/14/15 Given tetanus/diphtheria/pertussis, acel(Tdap)11 07/21/14 Given Fluzone (oldterm) 11/08/08 Given tetanus-diphtheria toxoids (Td)12 02/10/07 Given 1Result Comment: [facility]#[id number] Comment: [facility]#[id number] Comment: [12/01/2017] Done at [facility]. High dose.4Location History: [facility] [address] [place], [place] [address]Wjmxwb Comment: [04/02/2016] No route or location specified.6Result Comment: [11/17/2014] [facility] ceozdsv8Ngjezy Comment: [11/12/2012] Vis given Uycs7Bpsts Note: VIM dated 08/12/11 GIVEN TODAY9 Admin Note: 09/04/10 VIM GIVEN TODAY VUQUHFZH84Cxxdo Note: vis given 09-20-910 Result Comment: [07/21/2014] ins waiver mjenxn05Bfmwq Note: [employer] vim 12/29/07 Medications betamethasone [...] Refills, Maintenance, 01/22/21 11:54:00 EST, [facility], Patient sensitive to inactive ingredients of manufacturers drugs., 163.5, c... Start Date: 01/22/21 Status: Orderedestradiol 0.1 mg/g vaginal cream See Instructions, Insert 1 gram Vaginally weekly or 1/2 gram twice weekly 90 days, # 42.5 Gm, 4 Refills, Maintenance, 06/13/20 10:53:00 EDT, [facility], please dispense compounded med; we understand that FDA approved med is avai... Start Date: 06/13/20 Status: Orderedfamotidine 20 mg oral tablet 20 mg, 1, tablet, By Mouth, 2 times a day, # 180 tablet, Refills 3, Tot. Refills 3, Maintenance, 04/27/21 10:46:00 EDT, Route to Pharmacy Electronically, [facility], 163.5, cm, 01/22/21 [...] Refills, Maintenance, 04/20/21 9:59:00 EST, EC Capsule, [facility] # [...]
--- OUTSIDE RECORDS SUMMARY | 2021-11-11 11:23 | XMS_ITS | Continuity of Care Document ---
:1950 Author Organization [facility] Address [address] [place] [address]- Care Team Providers Name Role Phone Linda XIE, Gayle Francois Primary Care Physician [phone] Encounter [facility] Date(s): 06/01/21 - 07/01/21 [facility] [address] [place], [place] [address] Allergies, Adverse Reactions, Alerts Substance Reaction [...] vaccine, inactivated9 12/29/10 Given influenza virus vaccine, vkexccvbggp03 11/14/09 Given pneumococcal 13-valent vaccine 09/14/15 Given tetanus/diphtheria/pertussis, acel(Tdap)11 07/21/14 Given Fluzone (oldterm) 11/08/08 Given tetanus-diphtheria toxoids (Td)12 02/10/07 Given 1Result Comment: [facility]#[id number] Comment: [facility]#[id number] Comment: [12/01/2017] Done at [facility] High dose.4Location History: [facility] [address] [place], [place] [address]Xiekxf Comment: [04/02/2016] No route or location specified.6Result Comment: [11/17/2014] [facility] dkyvewy6Vggmob Comment: [11/12/2012] Vis given Ykor6Zzpyl Note: VIM dated 08/12/11 GIVEN TODAY9 Admin Note: 09/04/10 VIM GIVEN TODAY EDXXLPQW39Pjacq Note: vis given 09-20-910 Result Comment: [07/21/2014] ins waiver kaiwqn35Iqdku Note: [employer] vim 12/29/07 Medications betamethasone [...] Gm, 4 Refills, Maintenance, 01/22/21 11:54:00 EST, [facility], Patient sensitive to inactive ingredients of manufacturers drugs., 163.5, c... Start Date: 01/22/21 Status: Orderedestradiol 0.1 mg/g vaginal cream See Instructions, Insert 1 gram Vaginally weekly or 1/2 gram twice weekly 90 days, # 42.5 Gm, 4 Refills, Maintenance, 06/13/20 10:53:00 EDT, [facility], please dispense compounded med; we understand that [...] Refills, Maintenance, 04/20/21 9:59:00 EST, EC Capsule, [facility], 163.5, cm, 01/22/21 11:50:00 [...]
--- OUTSIDE RECORDS SUMMARY | 2021-11-11 11:23 | XMS_ITS | Continuity of Care Document ---
:1950 Author Organization [facility] Address [address] [place] [address]- Care Team Providers Name Role Phone Linda XIE, Gayle Francois Primary Care Physician [phone] Encounter [facility] Date(s): 06/01/21 - 07/01/21 [facility] [address] [place], [place] [address] Allergies, Adverse Reactions, Alerts Substance Reaction [...] vaccine, inactivated9 12/29/10 Given influenza virus vaccine, qvdvyhqcncd86 11/14/09 Given pneumococcal 13-valent vaccine 09/14/15 Given tetanus/diphtheria/pertussis, acel(Tdap)11 07/21/14 Given Fluzone (oldterm) 11/08/08 Given tetanus-diphtheria toxoids (Td)12 02/10/07 Given 1Result Comment: [facility]#[id number] Comment: [facility]#[id number] Comment: [12/01/2017] Done at [facility] High dose.4Location History: [facility] [address] [place], [place] [address]Lktkfb Comment: [04/02/2016] No route or location specified.6Result Comment: [11/17/2014] [facility] hytcrxv7Gfuohn Comment: [11/12/2012] Vis given Jbfx9Jkewq Note: VIM dated 08/12/11 GIVEN TODAY9 Admin Note: 09/04/10 VIM GIVEN TODAY GZFWHVSE81Dffpt Note: vis given 09-20-910 Result Comment: [07/21/2014] ins waiver vvoofk73Jhvmz Note: [employer] vim 12/29/07 Medications betamethasone [...] Gm, 4 Refills, Maintenance, 01/22/21 11:54:00 EST, [employer], Patient sensitive to inactive ingredients of manufacturers drugs., 163.5, c... Start Date: 01/22/21 Status: Orderedestradiol 0.1 mg/g vaginal cream See Instructions, Insert 1 gram Vaginally weekly or 1/2 gram twice weekly 90 days, # 42.5 Gm, 4 Refills, Maintenance, 06/13/20 10:53:00 EDT, [facility] [employer], please dispense compounded med; we understand that [...] Refills, Maintenance, 04/20/21 9:59:00 EST, EC Capsule, [facility], 163.5, cm, 01/22/21 11:50:00 [...]
--- OUTSIDE RECORDS SUMMARY | 2021-11-11 11:23 | XMS_ITS | Continuity of Care Document ---
:1950 Author Organization [facility] Address [address] [facility], [address] [address]- Care Team Providers Name Role Phone Linda XIE, Mack Francois Primary Care Physician Encounter 08/23/20 - 08/30/20 [facility] [address], [address] [place] [address]- Attending Physician: Mack Mckeon MD Admitting Physician: Mack Mckeon MD Referring Physician: Mack Mckeon MD Allergies, Adverse Reactions, Alerts Substance [...] vaccine, inactivated9 12/29/10 Given influenza virus vaccine, duqdqjhqlpg37 11/14/09 Given pneumococcal 13-valent vaccine 09/14/15 Given tetanus/diphtheria/pertussis, acel(Tdap)11 07/21/14 Given Fluzone (oldterm) 11/08/08 Given tetanus-diphtheria toxoids (Td)12 02/10/07 Given 1Result Comment: [facility]#[id number] Comment: [facility]#[id number] Comment: [12/01/2017] Done [facility] High dose.4Location History: [facility] [address] [place], [place] [address]Qehynl Comment: [04/02/2016] No route or location specified.6Result Comment: [11/17/2014] [facility] ymalgkh7Eiyfnq Comment: [11/12/2012] Vis given Tgsj3Gjoqw Note: VIM dated 08/12/11 GIVEN TODAY9 Admin Note: 09/04/10 VIM GIVEN TODAY VNIUXHFE05Mmytp Note: vis given 09-20-910 Result Comment: [07/21/2014] ins waiver otjggl49Jqxqp Note: [employer] vim 12/29/07 Medications betamethasone [...] Refills, Maintenance, 06/13/20 10:53:00 EDT, [facility], please dispense compounded med; we understand that [...] allergic rhinitis(Confirmed) Active Varicose veins(Confirmed) 11/08/08 Active Results Radiology Reports Exam Date Time Procedure Performing Provider Status 08/23/20 11:06 AM Dexa Bone Density (Axial) Kristin Elmore (Verified) Notes:(Dexa Bone Density (Axial)) Reason For Exam: OsteoporosisRESULT: DEXA BONE DENSITY (AXIAL) Bone Density Report Name: ERNESTO العراقي Age: 69 Sex: Female Ethnicity: White Date of : 1950 Indication: POSTMENOPAUSAL. Referring Provider: MACK MCKEON Study: Bone densitometry was performed. Exam Date: August 23, 2020 Accession number: [id number] Bone Density: Region BMD T-score Z-score Classification AP Spine (L1-L4) 0.786 -2.4 -0.2 Osteopenia Femoral Neck (Right) 0.623 -2.0 -0.2 Osteopenia Total Hip (Right) 0.670 -2.2 -0.7 Osteopenia World Health Organization criteria for BMD impression classify patients as: Normal (T-score at or above -1.0), Osteopenia (T-score between -1.0 and -2.5), or Osteoporosis (T-score at or below -2.5). 10-year Fracture Risk(1): Major Osteoporotic Fracture 12% Hip Fracture 2.5% Reported Risk Factors: [place] (), Neck BMD=0.623, BMI=23.8 (1) FRAX(R) Version 3.00. Fracture probability calculated for an untreated patient. Fracture probability may be lower if the patient has received treatment. Previous Exams: Region Exam Age BMD T-score BMD Change BMD Change Date g/cm2 vs Baseline vs Previous AP Spine(L1-L4) 08/23/2020 69 0.786 -2.4 2.0% 2.0% 08/20/2018 67 0.770 -2.5 Total Hip(Right) 08/23/2020 69 0.670 -2.2 -5.6%* -5.6%* 08/20/2018 67 0.710 -1.9 Femoral Neck(Right) 08/23/2020 69 0.623 -2.0 5.0%* 5.0%* 08/20/2018 67 0.593 -2.3 *Denotes significance at 95% confidence level, LSC for AP Spine = 0.022 g/cm2, LSC for Total Hip = 0.027 g/cm2 Clinical Information Provided by Patient: Has used the following medications: Vitamin D, Calcium Patient maximum height was 63.0 Menopause Age: 54 Onset of menses at age 13 Number of children 1 Impression: The patient has osteopenia as determined by WHO criteria. Reported by: Rik Clifford M.D. on 08/23/2020 4:43:00 PM. Dictated By: Rik Clifford MD Dictated Date/Time: 08/23/20 4:44 pm Reviewed By: Rik Clifford MD Signed By: Rik Clifford MD Signed Date/Time: 08/23/20 4:44 pm Transcribed By: RUDY Transcribed Date/Time: 08/23/20 4:44 pm Social History Social History Type Response Smoking Status Never smoker; Tobacco user i n household: No entered on: 07/21/13 Sex
--- OUTSIDE RECORDS SUMMARY | 2021-11-11 11:23 | XMS_ITS | Continuity of Care Document ---
:1950 Author Organization [facility] Address [address] [place] [address]- Care Team Providers Name Role Phone Linda XIE, Gayle Francois Primary Care Physician Encounter [facility] [place] Date(s): 11/24/19 - 12/01/19 [facility] [address] [place] [address]- [facility] Encounter Diagnosis Foot pain, right (Discharge Diagnosis) - 11/24/19 Constipation (Discharge Diagnosis) - 11/24/19 Candidiasis (Discharge Diagnosis) - 11/24/19 Folliculitis (Discharge Diagnosis) - 11/24/19 Attending Physician: Linda XIE, Gayle Francois Allergies, Adverse Reactions, Alerts Substance Reaction Severity [...] vaccine, inactivated9 12/29/10 Given influenza virus vaccine, uptarxoeiie60 11/14/09 Given pneumococcal 13-valent vaccine 09/14/15 Given tetanus/diphtheria/pertussis, acel(Tdap)11 07/21/14 Given Fluzone (oldterm) 11/08/08 Given tetanus-diphtheria toxoids (Td)12 02/10/07 Given 1Result Comment: [facility]#[id number] Comment: [facility]#[phone] Comment: [12/01/2017] Done at [facility] High dose.4Location History: [facility] [address] [place], [place] [address]Xbzaog Comment: [04/02/2016] No route or location specified.6Result Comment: [11/17/2014] [facility] vfzrrhb2Tsmqfy Comment: [11/12/2012] Vis given Jvuk7Uwhbv Note: VIM dated 08/12/11 GIVEN TODAY9 Admin Note: 09/04/10 VIM GIVEN TODAY TKHXWUOC27Xuxbf Note: vis given 09-20-910 Result Comment: [07/21/2014] ins waiver jajgep99Xynan Note: [employer] vim 12/29/07 Medications Evi [...] Refills, Maintenance, 02/19/19 12:11:00 EST, [facility], 160, cm, 02/17/19 16:12:00 EST, Height, 60.2, kg, 11/18/18 8:50:00 EDT, Dry Weight Start Date: 02/19/19 Status: Ordereddiclofenac sodium 75 mg oral delayed release tablet 1 tablet = 75 mg, By Mouth, 2 times a day, with food, # 10 tablet, 0 Refills, Maintenance, 02/17/19 16:29:00 EST, EC Tablet, [facility], 160, cm, 02/17/19 16:12:00 EST, Height, 60.2, kg, 11/18/18 8:50:00 EDT, Dry Weight Start Date: 02/17/19 Stop Date: 02/22/19 Status: Orderedestradiol 0.1 mg/g vaginal cream See Instructions, Insert 1 gram Vaginally weekly or 1/2 gram twice weekly 90 days, # 42.5 Gm, 0 Refills, Maintenance, 10/13/19 16:49:00 EDT, [facility], please dispense compounded med; we understand that FDA approved med is avai... Start Date: 10/13/19 Status: OrderedFamotidine By Mouth, Daily, 0 Refills, Maintenance, 01/06/18 11:35:20 EST Start Date: 01/06/18 Status: OrderedKnee Support See Instructions, # 1 each, Maintenance, R knee pn Playmaker 2, S REF: [id number], 05/24/13 17:02:10,Compound Start Date: 05/24/13 Status: Orderedmupirocin 2% topical ointment 1 application, Topically, 2 times a day, for 14 days, apply to affected skin, # 30 Gm, 0 Refills, Acute 12/08/19 10:52:00 EDT, 11/24/19 10:52:00 EDT, Ointment, [facility], 1 application Topically 2 times a day,x14 days,Instr:apply to affected... Start Date: 11/24/19 Stop Date: 12/08/19 Status: Orderednystatin topical 178547 u/gm powder 1 application, Topically, 2 times a day, for 30 days, # 30 Gm, 1 Refills, Acute 01/23/20 10:28:00 EST, 11/24/19 10:28:00 EDT, Powder, [facility], 1 application Topically 2 times a day,x30 days, 163.5, cm, 11/24/19 9:45:00 EDT, Height, 60.2, k... Start Date: 11/24/19 Stop Date: 01/23/20 Status: OrderedPrevacid 30 mg oral enteric coated capsule 1 capsule = 30 mg, By Mouth, Daily, # 90 capsule, 3 Refills, Maintenance, 04/26/19 12:56:00 EDT, EC Capsule, [facility], 163.5, cm, 02/24/19 15:19:00 [...] allergic rhinitis(Confirmed) Active Varicose veins(Confirmed) 11/08/08 Active Diagnosis Diagnosis Type Effective Dates Health Clinical Infor mant Status Service Foot pain, right Discharge 11/24/19 Diagnosis Constipation Discharge 11/24/19 Diagnosis Candidiasis Discharge 11/24/19 Diagnosis Folliculitis Discharge 11/24/19 Diagnosis Vital Signs Most recent to oldest [Reference Range]: 1 Height 163.5 cm (11/24/19 9:45 AM) Social History Social History Type Response Smoking Status Never smoker; Tobacco user i n household: No entered on: 07/21/13 Sex
--- OUTSIDE RECORDS SUMMARY | 2021-11-11 11:23 | XMS_ITS | Continuity of Care Document ---
:1950 Author Organization [facility] Address [address] [place] [address]- Care Team Providers Name Role Phone Linda XIE, Gayle Francois Primary Care Physician Encounter [facility] Date(s): 06/21/20 - 06/28/20 [facility] [address] [place] [address]- Encounter Diagnosis Thyroid nodule (Discharge Diagnosis) - 06/21/20 Osteoporosis (Discharge Diagnosis) - 06/21/20 Attending Physician: Linda XIE, Gayle Francois Allergies, [...] vaccine, inactivated9 12/29/10 Given influenza virus vaccine, wnheyybzpkd21 11/14/09 Given pneumococcal 13-valent vaccine 09/14/15 Given tetanus/diphtheria/pertussis, acel(Tdap)11 07/21/14 Given Fluzone (oldterm) 9/29/09 Given tetanus-diphtheria toxoids (Td)12 02/10/07 Given 1Result Comment: [facility]#[id number] Comment: [facility]#[id number] Comment: [12/01/2017] [facility] High dose.4Location History: [facility] [address] [place], [place] [address]Ywnlmf Comment: [04/02/2016] No route or location specified.6Result Comment: [11/17/2014] [facility] ecmnyrp3Ppbxzg Comment: [11/12/2012] Vis given Qhai4Cddsz Note: VIM dated 08/12/11 GIVEN TODAY9 Admin Note: 09/04/10 VIM GIVEN TODAY BAGJPREW66Pizdm Note: vis given 09-20-910 Result Comment: [07/21/2014] ins waiver ddfhbh94Pymfp Note: [employer] vim 12/29/07 Medications betamethasone [...] Refills, Maintenance, 06/13/20 10:53:00 EDT, [facility], please dispense compounded med; we understand that [...] Active Diagnosis Diagnosis Type Effective Dates Health Status Clinical In formant Service Thyroid nodule Discharge 06/21/20 Diagnosis Osteoporosis Discharge 06/21/20 Diagnosis Vital Signs Most recent to oldest [Reference Range]: 1 Height 163.5 cm (06/21/20 4:27 PM) Weight 60.9 kg (06/21/20 4:27 PM) Pulse Rate [55-90 bpm] 64 bpm (06/21/20 4:27 PM) Body Mass Index [18.5-24.99] 22.78 (06/21/20 4:27 PM) Blood Pressure [90-138/55-84 mm Hg] 107/71 mm Hg (06/21/20 4:27 PM) Blood pressure sites Arm, right (06/21/20 4:27 PM) Social History Social History Type Response Smoking Status Never smoker; Tobacco user i n household: No entered on: 07/21/13 Sex
--- OUTSIDE RECORDS SUMMARY | 2021-11-11 11:23 | XMS_ITS | Continuity of Care Document ---
:1950 Author Organization [facility] [place] Address [address] [place] [address], [address] [place] [address]- Care Team Providers Name Role Phone Linda XIE, Gayle Francois Primary Care Physician [phone] Encounter [facility] Date(s): 11/21/20 - 02/22/21 [facility] [address] [place] [address], [address] [place] [id number] Attending Physician: Georgette Meyer MD Referring Physician: Gayle Mckeon MD Allergies, Adverse Reactions, [...] vaccine, inactivated9 12/29/10 Given influenza virus vaccine, paqqjhhhfng99 11/14/09 Given pneumococcal 13-valent vaccine 09/14/15 Given tetanus/diphtheria/pertussis, acel(Tdap)11 07/21/14 Given Fluzone (oldterm) 11/08/08 Given tetanus-diphtheria toxoids (Td)12 02/10/07 Given 1Result Comment: [facility]#[id number] Comment: [facility]#[id number] Comment: [12/01/2017] [facility] at [facility] High dose.4Location History: [facility] [address] [place], [place] [address]Xlgtch Comment: [04/02/2016] No route or location specified.6Result Comment: [11/17/2014] [facility] kgseehc7Faskao Comment: [11/12/2012] Vis given Zrfx5Rftns Note: VIM dated 08/12/11 GIVEN TODAY9 Admin Note: 09/04/10 VIM GIVEN TODAY [id number] Note: vis given 09-20-910 Result Comment: [07/21/2014] ins waiver gqexma64Akidn Note: [employer] vim 12/29/07 Medications betamethasone [...] 4 Refills, Maintenance, 01/22/21 11:54:00 EST, [facility], Patient sensitive to inactive ingredients of manufacturers drugs., 163.5, c... Start Date: 01/22/21 Status: Orderedestradiol 0.1 mg/g vaginal cream See Instructions, Insert 1 gram Vaginally weekly or 1/2 gram twice weekly 90 days, # 42.5 Gm, 4 Refills, Maintenance, 06/13/20 10:53:00 EDT, [facility], please dispense compounded med; we understand that [...]
--- OUTSIDE RECORDS SUMMARY | 2021-11-11 11:23 | XMS_ITS | Continuity of Care Document ---
:1950 Author Organization [facility] Address [address] [place] [address]- Care Team Providers Name Role Phone Linda XIE, Gayle Francois Primary Care Physician En[place] [facility] Date(s): 07/03/20 - 08/02/20 [facility] [address] [place], [place] [address] Allergies, Adverse Reactions, Alerts Substance [...] vaccine, inactivated9 12/29/10 Given influenza virus vaccine, xhxnfwueufb16 11/14/09 Given pneumococcal 13-valent vaccine 09/14/15 Given tetanus/diphtheria/pertussis, acel(Tdap)11 07/21/14 Given Fluzone (oldterm) 11/08/08 Given tetanus-diphtheria toxoids (Td)12 02/10/07 Given 1Result Comment: [facility]#[id number] Comment: [facility]#[id number] Comment: [12/01/2017] [facility] at [facility] High dose.4Location History: [facility] [address] [place], [place] [address]Hhdypv Comment: [04/02/2016] No route or location specified.6Result Comment: [11/17/2014] [facility] rcvxaon3Igextc Comment: [11/12/2012] Vis given Chvb1Eduwc Note: VIM dated 08/12/11 GIVEN TODAY9 Admin Note: 09/04/10 VIM GIVEN TODAY [id number] Note: vis given 09-20-910 Result Comment: [07/21/2014] ins waiver gfewrp57Ibilm Note: [employer] vim 12/29/07 Medications betamethasone [...] Refills, Maintenance, 06/13/20 10:53:00 EDT, [facility], please dispense compounded med; we understand that [...]
--- OUTSIDE RECORDS SUMMARY | 2021-11-11 11:24 | XMS_ITS | Continuity of Care Document ---
:1950 Author Organization [facility] Address [address] [place] [address]- Care Team Providers Name Role Phone Linda XIE, Gayle Francois Primary Care Physician Encounter [facility] Date(s): 02/25/20 - 03/26/20 [facility] [address] [place], [place] [address] Allergies, Adverse Reactions, Alerts Substance [...] vaccine, inactivated9 12/29/10 Given influenza virus vaccine, koxumwdhcwv07 11/14/09 Given pneumococcal 13-valent vaccine 09/14/15 Given tetanus/diphtheria/pertussis, acel(Tdap)11 07/21/14 Given Fluzone (oldterm) 11/08/08 Given tetanus-diphtheria toxoids (Td)12 02/10/07 Given 1Result Comment: [facility]#[id number] Comment: [facility]#[id number] Comment: [12/01/2017] Done at [facility] High dose.4Location History: [facility] [address] [place], [place] [address]Engkal Comment: [04/02/2016] No route or location specified.6Result Comment: [11/17/2014] [facility] bdjvbpa2Xrvppm Comment: [11/12/2012] Vis given Daoc2Aicyf Note: VIM dated 08/12/11 GIVEN TODAY9 Admin Note: 09/04/10 VIM GIVEN TODAY CEOIZDUB70Pppiw Note: vis given 09-20-910 Result Comment: [07/21/2014] ins waiver yhlykd80Zofqh Note: [employer] vim 12/29/07 Medications Evi [...] Gm, 1 Refills, Maintenance, 02/19/19 12:11:00 EST, [facility] # [facility], 160, cm, 02/17/19 16:12:00 EST, Height, 60.2, kg, 11/18/18 8:50:00 EDT, Dry Weight Start Date: 02/19/19 Status: Ordereddiclofenac sodium 75 mg oral delayed release tablet 1 tablet = 75 mg, By Mouth, 2 times a day, with food, # 10 tablet, 0 Refills, Maintenance, 02/17/19 16:29:00 EST, EC Tablet, [facility] # [facility], 160, cm, 02/17/19 16:12:00 EST, Height, 60.2, kg, 11/18/18 8:50:00 EDT, Dry Weight Start Date: 02/17/19 Stop Date: 02/22/19 Status: Orderedestradiol 0.1 mg/g vaginal cream See Instructions, Insert 1 gram Vaginally weekly or 1/2 gram twice weekly 90 days, # 42.5 Gm, 1 Refills, Maintenance, 03/08/20 12:19:00 EST, [facility], please dispense compounded med; we understand that FDA approved med is avai... Start Date: 03/08/20 Status: OrderedFamotidine By Mouth, Daily, 0 Refills, Maintenance, 01/06/18 11:35:20 EST Start Date: 01/06/18 Status: OrderedIbuprofen Refills 0, Maintenance, 01/27/20 9:13:00 EST, Partial fill upon patient request if the prescription is for a schedule II opioid drug. Start Date: 01/27/20 Status: OrderedKnee Support See Instructions, # 1 [...]
--- OUTSIDE RECORDS SUMMARY | 2021-11-11 11:24 | XMS_ITS | Continuity of Care Document ---
:1950 Author Organization [facility] Address [address] [place] [address]- Care Team Providers Name Role Phone Linda XIE, Gayle Francois Primary Care Physician En[place] [facility] Date(s): 09/13/21 - 09/20/21 [facility] [address] [place] [address]- Encounter Diagnosis Palpitations (Discharge Diagnosis) - 09/13/21 Varicose veins of legs (Discharge Diagnosis) - 09/13/21 Attending Physician: Evelyn Johnson MD Allergies, Adverse Reactions, Alerts Substance Reaction Severity Status doxycycline GI effects Active amoxicillin hives Active Latex Active Lactose Active omeprazole Active Alomide Active Immunizations Given and Recorded Vaccine Date Status Refusal Reason SARS-CoV-2 mRNA (jyhjhhx-lzst-swdtk) vax 06/06/21 Recorde d influenza virus vaccine, [...] 23-valent vaccine9 05/11/18 Given hepatitis B adult exscrkd01 05/11/18 Given zoster vaccine, inactivated 04/23/18 Recorded pneumococcal 13-valent vaccine 09/14/15 Given tetanus/diphtheria/pertussis, acel(Tdap)11 07/21/14 Given Fluzone (oldterm) 11/08/08 Given tetanus-diphtheria toxoids (Td)12 02/10/07 Given 1Result Comment: [12/01/2017] Done at [facility]. High dose.2Location History: [facility] [address] [place], [place] [address]Rnseya Comment: [04/02/2016] No route or location specified.4Result Comment: [11/17/2014] [facility] jxfuxwa0Ynhlph Comment: [11/12/2012] Vis given Xiun4Hjrau Note: VIM dated 08/12/11 GIVEN TODAY7 Admin Note: 09/04/10 VIM GIVEN TODAY OWJKRXTD7Henbl Note: vis given Result Comment: [facility]#[phone] Comment: [facility]#[id number] Comment: [07/21/2014] ins waiver oocixr93Nzldy Note: [employer] vim 12/29/07 Medications betamethasone [...] Refills, Maintenance, 01/22/21 11:54:00 EST, [facility], Patient sensitive to inactive ingredients of manufacturers drugs., 163.5, c... Start Date: 01/22/21 Status: Orderedestradiol 0.1 mg/g vaginal cream See Instructions, Insert 1 gram Vaginally weekly or 1/2 gram twice weekly 90 days, # 42.5 Gm, 4 Refills, Maintenance, 06/13/20 10:53:00 EDT, [facility], please dispense compounded med; we understand that FDA approved med is avai... Start Date: 06/13/20 Status: Orderedfamotidine 20 mg oral tablet 20 mg, 1, tablet, By Mouth, 2 times a day, # 180 tablet, Refills 3, Tot. Refills 3, Maintenance, 04/27/21 10:46:00 EDT, Route to Pharmacy Electronically, [facility] # [facility], 163.5, cm, 01/22/21 [...] Refills, Maintenance, 04/20/21 9:59:00 EST, EC Capsule, [facility] # [facility], 163.5, cm, 01/22/21 [...] Dates Health Clinical Infor mant Status Service Palpitations Discharge 09/13/21 Diagnosis Varicose veins of Discharge 09/13/21 legs Diagnosis Vital Signs Most recent to oldest [Reference Range]: 1 Height 163.5 cm (09/13/21 9:20 AM) Weight 60.1 kg (09/13/21 9:20 AM) Oxygen Saturation [94-100 %] 98 % (09/13/21 9:20 AM) Pulse Rate [55-90 bpm] 65 bpm (09/13/21 9:20 AM) Body Mass Index [18.5-24.99] 22.48 (09/13/21 9:20 AM) Blood Pressure [90-138/55-84 mm Hg] 117/65 mm Hg (09/13/21 9:20 AM) Blood pressure sites Arm, left (09/13/21 9:20 AM) Dry Weight 60.1 kg (09/13/21 9:20 AM) Weight Obtained Via Standing scale (09/13/21 9:20 AM) Dry Weight Obtained Via Standing scale (09/13/21 9:20 AM) Social History Social History Type Response Smoking Status Never smoker; Tobacco user i n household: No entered on: 07/21/13 Sex
--- OUTSIDE RECORDS SUMMARY | 2021-11-11 11:24 | XMS_ITS | Continuity of Care Document ---
:1950 Author Organization [facility] Address [address] [place] [address]- Care Team Providers Name Role Phone Linda XIE, Gayle Francois Primary Care Physician [phone] Encounter [facility] Date(s): 12/11/20 - 12/18/20 [facility] [address] [place] [id number] Attending Physician: Not on Staff, Attending MD Referring Physician: Mitch XIE, Georgette Diez Allergies, Adverse Reactions, Alerts Substance Reaction Severity [...] vaccine, inactivated9 12/29/10 Given influenza virus vaccine, zaugmumkytu16 11/14/09 Given pneumococcal 13-valent vaccine 09/14/15 Given tetanus/diphtheria/pertussis, acel(Tdap)11 07/21/14 Given Fluzone (oldterm) 11/08/08 Given tetanus-diphtheria toxoids (Td)12 02/10/07 Given 1Result Comment: [facility]#[id number] Comment: [facility]#[id number] Comment: [12/01/2017] Done at [facility] High dose.4Location History: [facility] [address] [place], [place] [address]Wrhqzf Comment: [04/02/2016] No route or location specified.6Result Comment: [11/17/2014] [facility] jtlthnw5Gazeoz Comment: [11/12/2012] Vis given Slfo7Vtgxo Note: VIM dated 08/12/11 GIVEN TODAY9 Admin Note: 09/04/10 VIM GIVEN TODAY IQKUACDU66Qaeaj Note: vis given 09-20-910 Result Comment: [07/21/2014] ins waiver vfhfio96Ryrun Note: [employer] vim 12/29/07 Medications betamethasone [...] Refills, Maintenance, 06/13/20 10:53:00 EDT, [facility], please dispense compounded med; we understand that [...]
--- OUTSIDE RECORDS SUMMARY | 2021-11-11 11:24 | XMS_ITS | Continuity of Care Document ---
:1950 Author Organization [facility] Address [address] [place] [address]- Care Team Providers Name Role Phone Linda XIE, Gayle Francois Primary Care Physician [phone] Encounter [facility] Date(s): 02/17/19 - 02/24/19 [facility] [address] [place] [address]- [place] Encounter Diagnosis Low back pain with sciatica (Discharge Diagnosis) - 02/18/19 Attending Physician: Evelyn Johnson MD Allergies, Adverse [...] vaccine, inactivated9 12/29/10 Given influenza virus vaccine, saqoxyoxxth62 11/14/09 Given pneumococcal 13-valent vaccine 09/14/15 Given tetanus/diphtheria/pertussis, acel(Tdap)11 07/21/14 Given Fluzone (oldterm) 11/08/08 Given tetanus-diphtheria toxoids (Td)12 02/10/07 Given 1Result Comment: [facility]#[id number] Comment: [facility]#[id number] Comment: [12/01/2017] Done at [facility]. High dose.4Location History: [facility] [address] [place], [place] [address]Dupboo Comment: [04/02/2016] No route or location specified.6Result Comment: [11/17/2014] [facility] nwnngip9Zgnkyx Comment: [11/12/2012] Vis given Auzm8Mylcp Note: VIM dated 08/12/11 GIVEN TODAY9 Admin Note: 09/04/10 VIM GIVEN TODAY APKHAXQK25Hdahe Note: vis given 09-20-910 Result Comment: [07/21/2014] ins waiver mikatt77Ahjva Note: [employer] vim 12/29/07 Medications Evi [...] Gm, 1 Refills, Maintenance, 02/19/19 12:11:00 EST, [facility], 160, cm, 02/17/19 16:12:00 EST, Height, 60.2, kg, 11/18/18 8:50:00 EDT, Dry Weight Start Date: 02/19/19 Status: Ordereddiclofenac sodium 75 mg oral delayed release tablet 1 tablet = 75 mg, By Mouth, 2 times a day, with food, # 10 tablet, 0 Refills, Maintenance, 02/17/19 16:29:00 EST, EC Tablet, [facility] # [facility], 160, cm, 02/17/19 16:12:00 [...] 10/16/18 16:38:27 EDT, Route to Pharmacy Electronically, [id number], [facility] Start Date: 10/16/18 Status: OrderedKnee Support See Instructions, # 1 each, Maintenance, R knee pn Playmaker 2, S REF: [id number], 05/24/13 17:02:10,Compound Start Date: 05/24/13 Status: OrderedPrevacid 30 mg oral enteric coated capsule 1 capsule = 30 mg, By Mouth, Daily, # 90 capsule, 3 Refills, Maintenance, 04/22/19 11:05:55 EDT, EC Capsule Start Date: 04/22/19 Status: OrderedRestasis 0.05% ophthalmic emulsion 1 drops, [...] Dates Health Status Clinical In formant Service Low back pain Discharge 02/18/19 with sciatica Diagnosis Vital Signs Most recent to oldest [Reference Range]: 1 Height 160 cm (02/17/19 4:12 PM) Weight 61 kg (02/17/19 4:12 PM) Oxygen Saturation [94-100 %] 98 % (02/17/19 4:12 PM) Pulse Rate [55-90 bpm] 63 bpm (02/17/19 4:12 PM) Body Mass Index [18.5-24.99] 23.83 (02/17/19 4:12 PM) Blood Pressure [90-138/55-84 mm Hg] 112/60 mm Hg (02/17/19 4:12 PM) Respiratory Rate [16-30 br/min] 18 br/min (02/17/19 4:12 PM) Blood pressure sites Arm, right (02/17/19 4:12 PM) Social History Social History Type Response Smoking Status Never smoker; Tobacco user i n household: No entered on: 07/21/13 Sex
--- OUTSIDE RECORDS SUMMARY | 2021-11-11 11:24 | XMS_ITS | Continuity of Care Document ---
:1950 Author Organization [facility] Address [address] [place] [address]- Care Team Providers Name Role Phone Linda XIE, Gayle Francois Primary Care Physician Encounter [facility] Date(s): 09/12/21 - 10/12/21 [facility] [address] [place] [address]- Allergies, Adverse Reactions, Alerts Substance Reaction Severity Status doxycycline GI effects Active amoxicillin hives Active Latex Active Lactose Active omeprazole Active Alomide Active Immunizations Given and Recorded Vaccine Date Status Refusal Reason SARS-CoV-2 mRNA (vkgfdgj-gueg-pzilz) vax 06/06/21 Recorde d influenza virus vaccine, [...] 04/08/20 Recorde d Influenza Virus Vaccine (oldterm) 10/14/19 Recorded pneumococcal 23-valent vaccine9 05/11/18 Given hepatitis B adult vldzpga93 05/11/18 Given zoster vaccine, inactivated 04/23/18 Recorded pneumococcal 13-valent vaccine 09/14/15 Given tetanus/diphtheria/pertussis, acel(Tdap)11 07/21/14 Given Fluzone (oldterm) 11/08/08 Given tetanus-diphtheria toxoids (Td)12 02/10/07 Given 1Result Comment: [12/01/2017] Done at [facility]. High dose.2Location History: [facility] [address] [place], [place] [address]Ldpbcy Comment: [04/02/2016] No route or location specified.4Result Comment: [11/17/2014] [facility] upiufup9Zsmtbu Comment: [11/12/2012] Vis given Cicp7Qamii Note: VIM dated 08/12/11 GIVEN TODAY7 Admin Note: 09/04/10 VIM GIVEN TODAY MDFUQXCC4Tacnw Note: vis given Result Comment: [facility]#[id number] Comment: [facility]#[phone] Comment: [07/21/2014] ins waiver ftcusl67Vfoby Note: [employer] vim 12/29/07 Medications betamethasone [...] Refills, Maintenance, 01/22/21 11:54:00 EST, [facility], Patient sensitive to inactive ingredients of manufacturers drugs., 163.5, c... Start Date: 01/22/21 Status: Orderedestradiol 0.1 mg/g vaginal cream See Instructions, Insert 1 gram Vaginally weekly or 1/2 gram twice weekly 90 days, # 42.5 Gm, 4 Refills, Maintenance, 06/13/20 10:53:00 EDT, [facility], please dispense compounded med; we understand that FDA approved med is avai... Start Date: 06/13/20 Status: Orderedfamotidine 20 mg oral tablet 20 mg, 1, tablet, By Mouth, 2 times a day, # 180 tablet, Refills 3, Tot. Refills 3, Maintenance, 04/27/21 10:46:00 EDT, Route to Pharmacy Electronically, [facility], 163.5, cm, 01/22/21 [...] Refills, Maintenance, 04/20/21 9:59:00 EST, EC Capsule, [facility] # [facility], 163.5, cm, 01/22/21 [...] Team PersonnelName: Linda XIE, Gayle Francois Address: [address] [place] [address]
--- OUTSIDE RECORDS SUMMARY | 2021-11-11 11:24 | XMS_ITS | Continuity of Care Document ---
:1950 Author Organization [facility] Address [address] [place] [address]- Care Team Providers Name Role Phone Linda XIE, Gayle Francois Primary Care Physician [phone] Encounter [facility] Date(s): 06/13/20 - 07/13/20 [facility] [address] [place], [place] [address] Allergies, Adverse Reactions, Alerts Substance Reaction Severity [...] vaccine, inactivated9 12/29/10 Given influenza virus vaccine, ahqqorqsbuo01 11/14/09 Given pneumococcal 13-valent vaccine 09/14/15 Given tetanus/diphtheria/pertussis, acel(Tdap)11 07/21/14 Given Fluzone (oldterm) 11/08/08 Given tetanus-diphtheria toxoids (Td)12 02/10/07 Given 1Result Comment: [facility]#[id number] Comment: [facility]#[id number] Comment: [12/01/2017] Done [facility] High dose.4Location History: [facility] [address] [place], [place] [address]Skykci Comment: [04/02/2016] No route or location specified.6Result Comment: [11/17/2014] [facility] lqonfrb0Bnkdep Comment: [11/12/2012] Vis given Qctz2Gipua Note: VIM dated 08/12/11 GIVEN TODAY9 Admin Note: 09/04/10 VIM GIVEN TODAY YOULGDDJ89Uccua Note: vis given 09-20-910 Result Comment: [07/21/2014] ins waiver crdbci29Rsvnq Note: [employer] vim 12/29/07 Medications betamethasone [...] Refills, Maintenance, 06/13/20 10:53:00 EDT, [facility], please dispense compounded med; we understand that [...]
--- OUTSIDE RECORDS SUMMARY | 2021-11-11 11:24 | XMS_ITS | Continuity of Care Document ---
:1950 Author Organization [facility] Address [address] [place] [address]- Care Team Providers Name Role Phone Linda XIE, Gayle Francois Primary Care Physician Encounter [facility] Date(s): 06/12/20 - 06/19/20 [facility] [address] [place] [address]- Encounter Diagnosis Skin rash (Discharge Diagnosis) - 06/12/20 Attending Physician: Constanza Bajwa MD Allergies, Adverse Reactions, Alerts Substance Reaction [...] vaccine, inactivated9 12/29/10 Given influenza virus vaccine, dxkckstitxo11 11/14/09 Given pneumococcal 13-valent vaccine 09/14/15 Given tetanus/diphtheria/pertussis, acel(Tdap)11 07/21/14 Given Fluzone (oldterm) 11/08/08 Given tetanus-diphtheria toxoids (Td)12 02/10/07 Given 1Result Comment: [facility]#[id number] Comment: [facility]#[id number] Comment: [12/01/2017] Done at [facility]. High dose.4Location History: [facility] [address] [place], [place] [address]Healkc Comment: [04/02/2016] No route or location specified.6Result Comment: [11/17/2014] [facility] jkmccnx5Asscal Comment: [11/12/2012] Vis given Bfrx8Ptinz Note: VIM dated 08/12/11 GIVEN TODAY9 Admin Note: 09/04/10 VIM GIVEN TODAY NRKZPFFA25Wpxvy Note: vis given 09-20-910 Result Comment: [07/21/2014] ins waiver vbvmip46Akryw Note: [employer] vim 12/29/07 Medications Compression Stockings See Instructions, # 2 pair, Refills 1, Tot. Refills 1, Maintenance, surgical, thigh high length 20-30 mm Hg, 06/03/13 11:21:37 Start Date: 06/03/13 Status: Orderedestradiol 0.1 mg/g vaginal cream See Instructions, Insert 1 gram Vaginally weekly or 1/2 gram twice weekly 90 days, # 42.5 Gm, 4 Refills, Maintenance, 06/13/20 10:53:00 EDT, [facility], please dispense compounded med; we understand that FDA approved med is avai... Start Date: 06/13/20 Status: OrderedKnee Support See Instructions, # 1 [...] Diagnosis Type Effective Dates Health Status Clinical Serv ice Informant Skin rash Discharge 06/12/20 Diagnosis Vital Signs Most recent to oldest [Reference Range]: 1 Height 163.5 cm (06/12/20 3:11 PM) Weight 60.8 kg (06/12/20 3:11 PM) Oxygen Saturation [94-100 %] 98 % (06/12/20 3:11 PM) Pulse Rate [55-90 bpm] 70 bpm (06/12/20 3:11 PM) Body Mass Index [18.5-24.99] 22.74 (06/12/20 3:11 PM) Blood Pressure [90-138/55-84 mm Hg] 94/64 mm Hg (06/12/20 3:11 PM) Blood pressure sites Arm, left (06/12/20 3:11 PM) Weight Obtained Via Standing scale (06/12/20 3:11 PM) Social History Social History Type Response Smoking Status Never smoker; Tobacco user i n household: No entered on: 07/21/13 Sex
--- OUTSIDE RECORDS SUMMARY | 2021-11-11 11:24 | XMS_ITS | Continuity of Care Document ---
:1950 Author Organization [facility] Address [address] [facility], [address] [place] [address]- Care Team Providers Name Role Phone Linda XIE, Gayle Francois Primary Care Physician [phone] Encounter [facility] Date(s): 06/13/20 - 09/28/20 [facility] [address] [facility], [address] [place] [id number] Attending Physician: Georgette Meyer MD Referring Physician: Linda XIE, Gayle Francois Allergies, Adverse [...] vaccine, inactivated9 12/29/10 Given influenza virus vaccine, hxxluwatrvs80 11/14/09 Given pneumococcal 13-valent vaccine 09/14/15 Given tetanus/diphtheria/pertussis, acel(Tdap)11 07/21/14 Given Fluzone (oldterm) 11/08/08 Given tetanus-diphtheria toxoids (Td)12 02/10/07 Given 1Result Comment: [facility]#[id number] Comment: [facility]#[id number] Comment: [12/01/2017] Done at [facility] High dose.4Location History: [facility] [address] [place], [place] [address]Qvohnc Comment: [04/02/2016] No route or location specified.6Result Comment: [11/17/2014] [facility] ajdlwvv7Znzyrp Comment: [11/12/2012] Vis given Ecef7Grnhm Note: VIM dated 08/12/11 GIVEN TODAY9 Admin Note: 09/04/10 VIM GIVEN TODAY [id number] Note: vis given 09-20-910 Result Comment: [07/21/2014] ins waiver oiaewg63Weniv Note: [employer] vim 12/29/07 Medications betamethasone [...] Refills, Maintenance, 06/13/20 10:53:00 EDT, [facility], please dispense compounded med; we understand that [...]
--- OUTSIDE RECORDS SUMMARY | 2021-11-11 11:24 | XMS_ITS | Continuity of Care Document ---
:1950 Author Organization [facility] Address [address] [place] [address]- Care Team Providers Name Role Phone Linda XIE, Gayle Francois Primary Care Physician [facility] Date[facility]20 - [facility]/20 [facility] [address] [place], [place] [address] Attending Physician: AdmRaysa avila Allergies, Adverse Reactions, Alerts Substance Reaction Severity [...] vaccine, inactivated9 12/29/10 Given influenza virus vaccine, [id number] 11/14/09 Given pneumococcal 13-valent vaccine 09/14/15 Given tetanus/diphtheria/pertussis, acel(Tdap)11 07/21/14 Given Fluzone (oldterm) 11/08/08 Given tetanus-diphtheria toxoids (Td)12 02/10/07 Given 1Result Comment: [facility]#[phone] Comment: [facility]#[phone] Comment: [12/01/2017] Done at [facility] High dose.4Location History: [facility] [address] [place], [place] [address]Msmqzj Comment: [04/02/2016] No route or location specified.6Result Comment: [11/17/2014] [facility] bwzslec1Mwjtih Comment: [11/12/2012] Vis given Kmyo5Bjvim Note: VIM dated 08/12/11 GIVEN TODAY9 Admin Note: 09/04/10 VIM GIVEN TODAY [id number] Note: vis given 09-20-910 Result Comment: [07/21/2014] ins waiver omdodx61Hfwmj Note: [employer] vim 12/29/07 Medications Evi [...] Refills, Maintenance, 10/13/19 16:49:00 EDT, [facility], please dispense compounded [...]
--- OUTSIDE RECORDS SUMMARY | 2021-11-11 11:24 | XMS_ITS | Continuity of Care Document ---
:1950 Author Organization [facility] Address [address] [place] [address]- Care Team Providers Name Role Phone Linda XIE, Gayle Francois Primary Care Physician [phone] [facility] Date[facility] 06/13[facility]20 - 06/20/20 [facility] [address] [place], [place] [address] Attending Physician: Janina Washburn MD Allergies, Adverse Reactions, Alerts Substance Reaction [...] vaccine, inactivated9 12/29/10 Given influenza virus vaccine, atlbslnmmxz53 11/14/09 Given pneumococcal 13-valent vaccine 09/14/15 Given tetanus/diphtheria/pertussis, acel(Tdap)11 07/21/14 Given Fluzone (oldterm) 11/08/08 Given tetanus-diphtheria toxoids (Td)12 02/10/07 Given 1Result Comment: [facility]#[id number] Comment: [facility]#[phone] Comment: [12/01/2017] Done [facility] High dose.4Location History: [facility] [address] [place], [place] [address]Czqmct Comment: [04/02/2016] No route or location specified.6Result Comment: [11/17/2014] [facility] qtutbih5Kzqqhv Comment: [11/12/2012] Vis given Aqnb0Fupon Note: VIM dated 08/12/11 GIVEN TODAY9 Admin Note: 09/04/10 VIM GIVEN TODAY [id number] Note: vis given 09-20-910 Result Comment: [07/21/2014] ins waiver bnpkqa05Heyij Note: [employer] vim 12/29/07 Medications Compression Stockings See Instructions, # 2 pair, Refills 1, Tot. Refills 1, Maintenance, surgical, thigh high length 20-30 mm Hg, 06/03/13 11:21:37 Start Date: 06/03/13 Status: Orderedestradiol 0.1 mg/g vaginal cream See Instructions, Insert 1 gram Vaginally weekly or 1/2 gram twice weekly 90 days, # 42.5 Gm, 4 Refills, Maintenance, 06/13/20 10:53:00 EDT, [facility], please dispense compounded med; we understand that [...] oldest [Reference Range]: 1 Height 163.5 cm (06/13/20 10:17 AM) Weight 60.7 kg (06/13/20 10:17 AM) Body Mass Index [18.5-24.99] 22.71 (06/13/20 10:17 AM) Blood Pressure [90-138/55-84 mm Hg] 110/72 mm Hg (06/13/20 10:17 AM) Blood pressure sites Arm, left (06/13/20 10:17 AM) Dry Weight 60.7 kg (06/13/20 10:17 AM) Weight Obtained Via Standing scale (06/13/20 10:17 AM) Dry Weight Obtained Via Standing scale (06/13/20 10:17 AM) Social History Social History Type Response Smoking Status Never smoker; Tobacco user i n household: No entered on: 07/21/13 Sex
--- OUTSIDE RECORDS SUMMARY | 2021-11-11 11:24 | XMS_ITS | Continuity of Care Document ---
:1950 Author Organization [facility] Address [address] [place] [address]- Care Team Providers Name Role Phone Linda XIE, Gayle Francois Primary Care Physician [facility] Date[facility]s): 12/11/20 - 01/10/21 [facility] [address] [place] [address] Attending Physician: Raysa Rodgers Admitting Physician: Raysa Rodgers Referring Physician: Raysa Rodgers Allergies, Adverse Reactions, Alerts Substance Reaction Severity [...] vaccine, inactivated9 12/29/10 Given influenza virus vaccine, ttewqrqgoll32 11/14/09 Given pneumococcal 13-valent vaccine 09/14/15 Given tetanus/diphtheria/pertussis, acel(Tdap)11 07/21/14 Given Fluzone (oldterm) 11/08/08 Given tetanus-diphtheria toxoids (Td)12 02/10/07 Given 1Result Comment: [facility]#[phone] Comment: [facility]#[phone] Comment: [12/01/2017] Done at [facility] High dose.4Location History: [facility] [address] [place], [place] [address]Cwhtll Comment: [04/02/2016] No route or location specified.6Result Comment: [11/17/2014] [facility] lqpzyhg0Goxhyk Comment: [11/12/2012] Vis given Owba1Kfajw Note: VIM dated 08/12/11 GIVEN TODAY9 Admin Note: 09/04/10 VIM GIVEN TODAY UNAPCVJM45Mrvss Note: vis given 09-20-910 Result Comment: [07/21/2014] ins waiver qluyyo52Wybow Note: [employer] vim 12/29/07 Medications betamethasone [...] Refills, Maintenance, 06/13/20 10:53:00 EDT, [facility], please dispense compounded med; we understand that [...]
--- OUTSIDE RECORDS SUMMARY | 2021-11-11 11:24 | XMS_ITS | Continuity of Care Document ---
:[address] [facility] Address [address] [place] [address]- Care Team Providers Name Role Phone Linda XIE, Gayle Francois Primary Care Physician [phone] Encounter [facility] Date(s): 07/11/20 - 07/18/20 [facility] [address] [place] [address]- Attending Physician: Cong Baptiste Referring Physician: Gayle Mckeon MD Allergies, Adverse [...] vaccine, inactivated9 12/29/10 Given influenza virus vaccine, neydmijhlcg02 11/14/09 Given pneumococcal 13-valent vaccine 09/14/15 Given tetanus/diphtheria/pertussis, acel(Tdap)11 07/21/14 Given Fluzone (oldterm) 11/08/08 Given tetanus-diphtheria toxoids (Td)12 1/1/08 Given 1Result Comment: [facility]#[id number] Comment: [facility]#[phone] Comment: [12/01/2017] Done at [facility] High dose.4Location History: [facility] [address] [place], [place] [address]Tudjlx Comment: [04/02/2016] No route or location specified.6Result Comment: [11/17/2014] [facility] bsotbsd4Gkbzzx Comment: [11/12/2012] Vis given Lsfq1Ypdrk Note: VIM dated 08/12/11 GIVEN TODAY9 Admin Note: 09/04/10 VIM GIVEN TODAY STLOMJKG56Jibli Note: vis given 09-20-910 Result Comment: [07/21/2014] ins waiver wbpugm17Hhosn Note: [employer] vim 12/29/07 Medications betamethasone [...] Refills, Maintenance, 06/13/20 10:53:00 EDT, [facility], please dispense compounded med; we understand that [...] oldest [Reference Range]: 1 Height 163.5 cm (07/11/20 11:13 AM) Oxygen Saturation [94-100 %] 99 % (07/11/20 11:13 AM) Pulse Rate [55-90 bpm] 63 bpm (07/11/20 11:13 AM) Blood Pressure [90-138/55-84 mm Hg] 135/78 mm Hg (07/11/20 11:13 AM) Respiratory Rate [16-30 br/min] 20 br/min (07/11/20 11:13 AM) Temperature [96.8-100.4 DegF] 96.7 DegF *L* (07/11/20 11:13 AM) Mode of Delivery (Oxygen) Room air (07/11/20 11:13 AM) Blood pressure sites Arm, left (07/11/20 11:13 AM) Temperature Route Temporal (07/11/20 11:13 AM) Social History Social History Type Response Smoking Status Never smoker; Tobacco user i n household: No entered on: 07/21/13 Sex
--- OUTSIDE RECORDS SUMMARY | 2021-11-11 11:24 | XMS_ITS | Continuity of Care Document ---
:1950 Author Organization [facility] Address [address] [place] [address]- Care Team Providers Name Role Phone Linda XIE, Gayle Francois Primary Care Physician [phone] Encounter [facility] Date(s): 02/23/21 - 03/25/21 [facility] [address] [place], [place] [address] Attending Physician: AdmtrRaysa Allergies, Adverse Reactions, [...] vaccine, inactivated9 12/29/10 Given influenza virus vaccine, 11/14/09 Given pneumococcal 13-valent vaccine 09/14/15 Given tetanus/diphtheria/pertussis, acel(Tdap)11 07/21/14 Given Fluzone (oldterm) 11/08/08 Given tetanus-diphtheria toxoids (Td)12 02/10/07 Given 1Result Comment: [facility]#[id number] Comment: [facility]#[phone] Comment: [12/01/2017] Done at [facility] High dose.4Location History: [facility] [address] [place], [place] [address]Yhbdxi Comment: [04/02/2016] No route or location specified.6Result Comment: [11/17/2014] [facility] loknsxa5Pzknjo Comment: [11/12/2012] Vis given Evak3Fvbln Note: VIM dated 08/12/11 GIVEN TODAY9 Admin Note: 09/04/10 VIM GIVEN TODAY [id number] Note: vis given 09-20-910 Result Comment: [07/21/2014] ins waiver pxvwxf01Hsjzw Note: [employer] vim 12/29/07 Medications betamethasone [...] 4 Refills, Maintenance, 01/22/21 11:54:00 EST, [facility], Patient sensitive to inactive ingredients of manufacturers drugs., 163.5, c... Start Date: 01/22/21 Status: Orderedestradiol 0.1 mg/g vaginal cream See Instructions, Insert 1 gram Vaginally weekly or 1/2 gram twice weekly 90 days, # 42.5 Gm, 4 Refills, Maintenance, 06/13/20 10:53:00 EDT, [facility], please dispense compounded med; we understand that [...]
--- OUTSIDE RECORDS SUMMARY | 2021-11-11 11:24 | XMS_ITS | Continuity of Care Document ---
:1950 Author Organization [facility] Address [address] [facility], [address] [place] [address]- Care Team Providers Name Role Phone Linda XIE, Gayle Francois Primary Care Physician [phone] Encounter [facility] Date(s): 11/21/20 - 11/28/20 [facility] [address] [facility], [address] [place] [address] Attending Physician: Georgette Meyer MD Referring Physician: [...] vaccine, inactivated9 12/29/10 Given influenza virus vaccine, embkqaqfuoi22 11/14/09 Given pneumococcal 13-valent vaccine 09/14/15 Given tetanus/diphtheria/pertussis, acel(Tdap)11 07/21/14 Given Fluzone (oldterm) 11/08/08 Given tetanus-diphtheria toxoids (Td)12 02/10/07 Given 1Result Comment: [facility]#[id number] Comment: [facility]#[id number] Comment: [12/01/2017] Done at [facility] High dose.4Location History: [facility] [address] [place], [place] [address]Yqpgim Comment: [04/02/2016] No route or location specified.6Result Comment: [11/17/2014] [facility] xxczoqc2Rtakww Comment: [11/12/2012] Vis given Akkp2Spqid Note: VIM dated 08/12/11 GIVEN TODAY9 Admin Note: 09/04/10 VIM GIVEN TODAY HIPUOZMZ74Pykpf Note: vis given 09-20-910 Result Comment: [07/21/2014] ins waiver arvupq45Eyjum Note: [employer] vim 12/29/07 Medications betamethasone [...] Refills, Maintenance, 06/13/20 10:53:00 EDT, [facility], please dispense compounded med; we understand that [...] oldest [Reference Range]: 1 Height 163.5 cm (11/21/20 11:15 AM) Weight 60.7 kg (11/21/20 11:15 AM) Body Mass Index [18.5-24.99] 22.71 (11/21/20 11:15 AM) Blood Pressure [90-138/55-84 mm Hg] 110/60 mm Hg (11/21/20 11:15 AM) Blood pressure sites Arm, right (11/21/20 11:15 AM) Dry Weight 60.7 kg (11/21/20 11:15 AM) Weight Obtained Via Standing scale (11/21/20 11:15 AM) Dry Weight Obtained Via Standing scale (11/21/20 11:15 AM) Social History Social History Type Response Smoking Status Never smoker; Tobacco user i n household: No entered on: 07/21/13 Sex
--- OUTSIDE RECORDS SUMMARY | 2021-11-11 11:24 | XMS_ITS | Continuity of Care Document ---
:1950 Author Organization [facility] Address [address] [place] [address]- Care Team Providers Name Role Phone Linda XIE, Gayle Francois Primary Care Physician [phone] [facility] Date(s): 06/01/21 - 07/01/21 [facility] [address] [place], [place] [address] Allergies, Adverse Reactions, Alerts Substance [...] vaccine, inactivated9 12/29/10 Given influenza virus vaccine, wgikgesmzci52 11/14/09 Given pneumococcal 13-valent vaccine 09/14/15 Given tetanus/diphtheria/pertussis, acel(Tdap)11 07/21/14 Given Fluzone (oldterm) 11/08/08 Given tetanus-diphtheria toxoids (Td)12 02/10/07 Given 1Result Comment: [facility]#[id number] Comment: [facility]#[id number] Comment: [12/01/2017] Done at [facility] High dose.4Location History: [facility] [address] [place], [place] [address]Uglbpm Comment: [04/02/2016] No route or location specified.6Result Comment: [11/17/2014] [facility] rbbykyn6Yogmws Comment: [11/12/2012] Vis given Zooi2Amrbr Note: VIM dated 08/12/11 GIVEN TODAY9 Admin Note: 09/04/10 VIM GIVEN TODAY EHQPQJXR18Phbqz Note: vis given 09-20-910 Result Comment: [07/21/2014] ins waiver iqqmhq12Uzskh Note: [employer] vim 12/29/07 Medications betamethasone [...] Gm, 4 Refills, Maintenance, 01/22/21 11:54:00 EST, [facility], Patient sensitive to inactive ingredients of manufacturers drugs., 163.5, c... Start Date: 01/22/21 Status: Orderedestradiol 0.1 mg/g vaginal cream See Instructions, Insert 1 gram Vaginally weekly or 1/2 gram twice weekly 90 days, # 42.5 Gm, 4 Refills, Maintenance, 06/13/20 10:53:00 EDT, [facility], please dispense compounded med; we understand that [...] Refills, Maintenance, 04/20/21 9:59:00 EST, EC Capsule, [facility], 163.5, cm, 01/22/21 [...]
--- OUTSIDE RECORDS SUMMARY | 2021-11-11 11:24 | XMS_ITS | Continuity of Care Document ---
:1950 Author Organization [facility] Address [address] [place] [address]- Care Team Providers Name Role Phone Gayle Mckeon MD Primary Care Physician [facility] Date(s): 02/23/21 - 03/02/21 [facility] [address] [place], [place] [address] Attending Physician: Gayle Mckeon MD Allergies, Adverse [...] vaccine, inactivated9 12/29/10 Given influenza virus vaccine, slljtptrnzy33 11/14/09 Given pneumococcal 13-valent vaccine 09/14/15 Given tetanus/diphtheria/pertussis, acel(Tdap)11 07/21/14 Given Fluzone (oldterm) 11/08/08 Given tetanus-diphtheria toxoids (Td)12 02/10/07 Given 1Result Comment: [facility]#[phone] Comment: [facility]#[id number] Comment: [12/01/2017] Done at [facility] High dose.4Location History: [facility] [address] [place], [place] [address]Ywzyii Comment: [04/02/2016] No route or location specified.6Result Comment: [11/17/2014] [facility] marivpx9Myhyjl Comment: [11/12/2012] Vis given Pwwv3Glwlb Note: VIM dated 08/12/11 GIVEN TODAY9 Admin Note: 09/04/10 VIM GIVEN TODAY MNLLLZRB27Iomwc Note: vis given 09-20-910 Result Comment: [07/21/2014] ins waiver dxaftw50Wfayz Note: [employer] vim 12/29/07 Medications betamethasone [...] Refills, Maintenance, 01/22/21 11:54:00 EST, [facility], Patient sensitive to inactive ingredients of manufacturers drugs., 163.5, c... Start Date: 01/22/21 Status: Orderedestradiol 0.1 mg/g vaginal cream See Instructions, Insert 1 gram Vaginally weekly or 1/2 gram twice weekly 90 days, # 42.5 Gm, 4 Refills, Maintenance, 06/13/20 10:53:00 EDT, [facility], please dispense compounded med; we understand that [...]
--- OUTSIDE RECORDS SUMMARY | 2021-11-11 11:24 | XMS_ITS | Continuity of Care Document ---
:1950 Author Organization [facility] Address [address] [place] [address]- Care Team Providers Name Role Phone Linda XIE, Gayle Francois Primary Care Physician Encounter [facility] Date(s): 01/27/20 - 02/03/20 [facility] [address] [place], [place] [address] Attending Physician: Gayle Mckeon MD Allergies, Adverse [...] vaccine, inactivated9 12/29/10 Given influenza virus vaccine, pxutecnnbjm00 11/14/09 Given pneumococcal 13-valent vaccine 09/14/15 Given tetanus/diphtheria/pertussis, acel(Tdap)11 07/21/14 Given Fluzone (oldterm) 11/08/08 Given tetanus-diphtheria toxoids (Td)12 02/10/07 Given 1Result Comment: [facility]#[id number] Comment: [facility]#[id number] Comment: [12/01/2017] Done at [facility]. High dose.4Location History: [facility] [address] [place], [place] [address]Fdrjcc Comment: [04/02/2016] No route or location specified.6Result Comment: [11/17/2014] [facility] taayems5Zxmomw Comment: [11/12/2012] Vis given Yxun2Ddxaf Note: VIM dated 08/12/11 GIVEN TODAY9 Admin Note: 09/04/10 VIM GIVEN TODAY [id number] Note: vis given 09-20-910 Result Comment: [07/21/2014] ins waiver qrkeks36Jhkws Note: [employer] vim 12/29/07 Medications Evi [...] Refills, Maintenance, 10/13/19 16:49:00 EDT, [facility], please dispense compounded [...] oldest [Reference Range]: 1 Height 163.5 cm (01/27/20 9:12 AM) Social History Social History Type Response Smoking Status Never smoker; Tobacco user i n household: No entered on: 07/21/13 Sex
--- OUTSIDE RECORDS SUMMARY | 2021-11-11 11:24 | XMS_ITS | Continuity of Care Document ---
:1950 Author Organization [facility] Address [address] [place] [address]- Care Team Providers Name Role Phone Linda XIE, Gayle Francois Primary Care Physician Encounter [facility] Date(s): 11/25/19 - 12/02/19 [facility] [address] [place] [address]- [facility] Attending Physician: Not on Staff, Attending MD Allergies, Adverse Reactions, Alerts Substance Reaction [...] vaccine, inactivated9 12/29/10 Given influenza virus vaccine, ldkvjdvkkim68 11/14/09 Given pneumococcal 13-valent vaccine 09/14/15 Given tetanus/diphtheria/pertussis, acel(Tdap)11 07/21/14 Given Fluzone (oldterm) 11/08/08 Given tetanus-diphtheria toxoids (Td)12 02/10/07 Given 1Result Comment: [facility]#[id number] Comment: [facility]#[id number] Comment: [12/01/2017] Done at [facility] High dose.4Location History: [facility] [address] [place], [place] [address]Ipcscp Comment: [04/02/2016] No route or location specified.6Result Comment: [11/17/2014] [facility] zyyzaol9Dsgnft Comment: [11/12/2012] Vis given Ipci2Duqbq Note: VIM dated 08/12/11 GIVEN TODAY9 Admin Note: 09/04/10 VIM GIVEN TODAY QPEKQGSG81Ufgmy Note: vis given 09-20-910 Result Comment: [07/21/2014] ins waiver fvqkkz49Nuylp Note: [employer] vim 12/29/07 Medications Evi [...] Gm, 1 Refills, Maintenance, 02/19/19 12:11:00 EST, [facility], 160, cm, 02/17/19 16:12:00 EST, Height, 60.2, kg, 11/18/18 8:50:00 EDT, Dry Weight Start Date: 02/19/19 Status: Ordereddiclofenac sodium 75 mg oral delayed release tablet 1 tablet = 75 mg, By Mouth, 2 times a day, with food, # 10 tablet, 0 Refills, Maintenance, 02/17/19 16:29:00 EST, EC Tablet, [facility], 160, cm, 02/17/19 16:12:00 EST, Height, 60.2, kg, 11/18/18 8:50:00 EDT, Dry Weight Start Date: 02/17/19 Stop Date: 02/22/19 Status: Orderedestradiol 0.1 mg/g vaginal cream See Instructions, Insert 1 gram Vaginally weekly or 1/2 gram twice weekly 90 days, # 42.5 Gm, 0 Refills, Maintenance, 10/13/19 16:49:00 EDT, [facility], please dispense compounded med; we understand that [...] 12/08/19 10:52:00 EDT, 11/24/19 10:52:00 EDT, Ointment, [facility], 1 application Topically 2 times a day,x14 days,Instr:apply to affected... Start Date: 11/24/19 Stop Date: 12/08/19 Status: Orderednystatin topical [id number] u/gm powder 1 application, Topically, 2 times a day, for 30 days, # 30 Gm, 1 Refills, Acute 01/23/20 10:28:00 EST, 11/24/19 10:28:00 EDT, Powder, [facility] # [facility], 1 application Topically 2 times a day,x30 days, 163.5, cm, 11/24/19 9:45:00 EDT, Height, 60.2, k... Start Date: 11/24/19 Stop Date: 01/23/20 Status: OrderedPrevacid 30 mg oral enteric coated capsule 1 capsule = 30 mg, By Mouth, Daily, # 90 capsule, 3 Refills, Maintenance, 04/26/19 12:56:00 EDT, EC Capsule, [facility] # [facility], 163.5, cm, 02/24/19 15:19:00 [...]
--- OUTSIDE RECORDS SUMMARY | 2021-11-11 11:24 | XMS_ITS | Continuity of Care Document ---
:1950 Author Organization [facility] Address [address] [place] [address]- Care Team Providers Name Role Phone Linda XIE, Gayle Francois Primary Care Physician [phone] Encounter [facility] Date(s): 12/20/19 - 01/19/20 [facility] [address] [place], [place] [address] Attending Physician: AdmtrRaysa Allergies, Adverse Reactions, Alerts [...] vaccine, inactivated9 12/29/10 Given influenza virus vaccine, pqmmdhbfaud03 11/14/09 Given pneumococcal 13-valent vaccine 09/14/15 Given tetanus/diphtheria/pertussis, acel(Tdap)11 07/21/14 Given Fluzone (oldterm) 11/08/08 Given tetanus-diphtheria toxoids (Td)12 02/10/07 Given 1Result Comment: [facility]#[id number] Comment: [facility]#[id number] Comment: [12/01/2017] Done at [facility]. High dose.4Location History: [facility] [address] [place], [place] [address]Uujutq Comment: [04/02/2016] No route or location specified.6Result Comment: [11/17/2014] [facility] qspawuc5Qpwmim Comment: [11/12/2012] Vis given Ysyr1Zcpdv Note: VIM dated 08/12/11 GIVEN TODAY9 Admin Note: 09/04/10 VIM GIVEN TODAY [id number] Note: vis given 09-20-910 Result Comment: [07/21/2014] ins waiver uwpdan05Eehdf Note: [employer] vim 12/29/07 Medications Evi [...] Gm, 1 Refills, Maintenance, 02/19/19 12:11:00 EST, [facility], 160, cm, 02/17/19 16:12:00 EST, Height, 60.2, kg, 11/18/18 8:50:00 EDT, Dry Weight Start Date: 02/19/19 Status: Ordereddiclofenac sodium 75 mg oral delayed release tablet 1 tablet = 75 mg, By Mouth, 2 times a day, with food, # 10 tablet, 0 Refills, Maintenance, 02/17/19 16:29:00 EST, EC Tablet, [facility], 160, cm, 02/17/19 16:12:00 EST, Height, 60.2, kg, 11/18/18 8:50:00 EDT, Dry Weight Start Date: 02/17/19 Stop Date: 02/22/19 Status: Orderedestradiol 0.1 mg/g vaginal cream See Instructions, Insert 1 gram Vaginally weekly or 1/2 gram twice weekly 90 days, # 42.5 Gm, 0 Refills, Maintenance, 10/13/19 16:49:00 EDT, [facility], please dispense compounded med; we understand that FDA approved med is avai... Start Date: 10/13/19 Status: OrderedFamotidine By Mouth, Daily, 0 Refills, Maintenance, 01/06/18 11:35:20 EST Start Date: 01/06/18 Status: OrderedKnee Support See Instructions, # 1 each, Maintenance, R knee pn [employer]maker 2, S REF: [id number], 05/24/13 17:02:10,Compound Start Date: 05/24/13 Status: Orderednystatin topical [id number] u/gm powder 1 application, Topically, 2 times a day, for 30 days, # 30 Gm, 1 Refills, Acute 01/23/20 10:28:00 EST, 11/24/19 10:28:00 EDT, Powder, [facility] # [facility], 1 application Topically 2 times a day,x30 days, 163.5, cm, 11/24/19 9:45:00 EDT, Height, 60.2, k... Start Date: 11/24/19 Stop Date: 01/23/20 Status: OrderedPrevacid 30 mg oral enteric coated capsule 1 capsule = 30 mg, By Mouth, Daily, # 90 capsule, 3 Refills, Maintenance, 04/26/19 12:56:00 EDT, EC Capsule, [facility] # [facility], 163.5, cm, 02/24/19 15:19:00 [...]
--- OUTSIDE RECORDS SUMMARY | 2021-11-11 11:24 | XMS_ITS | Continuity of Care Document ---
:1950 Author Organization [facility] Address [address] [place] [address], [address] [place] [address]- Care Team Providers Name Role Phone Linda XIE, Gayle Francois Primary Care Physician Encounter [facility] Date(s): 01/23/21 - 02/22/21 [facility] [address] [place] [address], [address] [place] [address] Attending Physician: Raysa Rodgers Admitting Physician: Raysa [...] vaccine, inactivated9 12/29/10 Given influenza virus vaccine, uplfbvldsve16 11/14/09 Given pneumococcal 13-valent vaccine 09/14/15 Given tetanus/diphtheria/pertussis, acel(Tdap)11 07/21/14 Given Fluzone (oldterm) 11/08/08 Given tetanus-diphtheria toxoids (Td)12 02/10/07 Given 1Result Comment: [facility]#[id number] Comment: [facility]#[phone] Comment: [12/01/2017] Done at [facility] High dose.4Location History: [facility] [address] [place], [place] [address]Bnyawa Comment: [04/02/2016] No route or location specified.6Result Comment: [11/17/2014] [facility] jmmgsuw3Gynvqm Comment: [11/12/2012] Vis given Xyio0Qhwyq Note: VIM dated 08/12/11 GIVEN TODAY9 Admin Note: 09/04/10 VIM GIVEN TODAY ZQRLQDDU69Gfjmb Note: vis given 09-20-910 Result Comment: [07/21/2014] ins waiver fzwmsg22Pneuj Note: [employer] vim 12/29/07 Medications betamethasone [...] Refills, Maintenance, 01/22/21 11:54:00 EST, [facility], Patient sensitive to inactive ingredients of manufacturers [...]
--- OUTSIDE RECORDS SUMMARY | 2021-11-11 11:24 | XMS_ITS | Continuity of Care Document ---
:1950 Author Organization [facility] Address [address] [place] [address]- Care Team Providers Name Role Phone Linda XIE, Gayle Francois Primary Care Physician [phone] Encounter [facility] Date(s): 07/11/20 - 08/10/20 [facility] [address] [place], [place] [address] Attending Physician: Raysa Rodgers Admitting Physician: AdmRaysa avila Referring Physician: AdmtrRaysa Allergies, Adverse Reactions, Alerts [...] vaccine, inactivated9 12/29/10 Given influenza virus vaccine, serbdhckahg05 11/14/09 Given pneumococcal 13-valent vaccine 09/14/15 Given tetanus/diphtheria/pertussis, acel(Tdap)11 07/21/14 Given Fluzone (oldterm) 11/08/08 Given tetanus-diphtheria toxoids (Td)12 02/10/07 Given 1Result Comment: [facility]#[phone] Comment: [facility]#[phone] Comment: [12/01/2017] Done at [facility] High dose.4Location History: [facility] [address] [place], [place] [address]Amyigs Comment: [04/02/2016] No route or location specified.6Result Comment: [11/17/2014] [facility] cuwwsbo7Cmjkfe Comment: [11/12/2012] Vis given Hzkr3Ecojp Note: VIM dated 08/12/11 GIVEN TODAY9 Admin Note: 09/04/10 VIM GIVEN TODAY [id number] Note: vis given 09-20-910 Result Comment: [07/21/2014] ins waiver fpsefn57Lddjb Note: [employer] vim 12/29/07 Medications betamethasone [...] Refills, Maintenance, 06/13/20 10:53:00 EDT, [facility], please dispense compounded med; we understand that [...]
--- OUTSIDE RECORDS SUMMARY | 2021-11-11 11:24 | XMS_ITS | Continuity of Care Document ---
:1950 Author Organization [facility] Address [address] [place] [address]- Care Team Providers Name Role Phone Linda XIE, Gayle Francois Primary Care Physician [facility]counter [facility] Date(s): 02/17/19 - 02/27/19 [facility] [address] [place] [address]- [facility] Attending Physician: Admtr, Raysa Allergies, Adverse Reactions, Alerts Substance Reaction Severity [...] vaccine, inactivated9 12/29/10 Given influenza virus vaccine, torbhlpdlry31 11/14/09 Given pneumococcal 13-valent vaccine 09/14/15 Given tetanus/diphtheria/pertussis, acel(Tdap)11 07/21/14 Given Fluzone (oldterm) 11/08/08 Given tetanus-diphtheria toxoids (Td)12 02/10/07 Given 1Result Comment: [facility]#[id number] Comment: [facility]#[id number] Comment: [12/01/2017] Done at [facility] High dose.4Location History: [facility] [address] [place], [place] [address]Jnfiza Comment: [04/02/2016] No route or location specified.6Result Comment: [11/17/2014] [facility] purwkvv1Qrhgrv Comment: [11/12/2012] Vis given Upjg4Xgyoa Note: VIM dated 08/12/11 GIVEN TODAY9 Admin Note: 09/04/10 VIM GIVEN TODAY FFQQDHJQ03Kkecn Note: vis given 09-20-910 Result Comment: [07/21/2014] ins waiver nvlkam19Tryds Note: [employer] vim 12/29/07 Medications Evi [...] 10/16/18 16:38:27 EDT, Route to Pharmacy Electronically, [id number], [facility] Start Date: [...]
--- OUTSIDE RECORDS SUMMARY | 2021-11-11 11:24 | XMS_ITS | Continuity of Care Document ---
:1950 Author Organization [facility] Address [address] [place] [address]- Care Team Providers Name Role Phone Linda XIE, Gayle Francois Primary Care Physician [phone] Encounter [facility] Date(s): 04/11/21 - 05/11/21 [facility] [address] [place], [place] [address] Allergies, Adverse Reactions, Alerts Substance [...] vaccine, inactivated9 12/29/10 Given influenza virus vaccine, vfndgeqvrom33 11/14/09 Given pneumococcal 13-valent vaccine 09/14/15 Given tetanus/diphtheria/pertussis, acel(Tdap)11 07/21/14 Given Fluzone (oldterm) 11/08/08 Given tetanus-diphtheria toxoids (Td)12 02/10/07 Given 1Result Comment: [facility]#[phone] Comment: [facility]#[phone] Comment: [12/01/2017] Done at [facility] High dose.4Location History: [facility] [address] [place], [place] [address]Cjpsvb Comment: [04/02/2016] No route or location specified.6Result Comment: [11/17/2014] [facility] csdelno3Givtoh Comment: [11/12/2012] Vis given Kazq5Siykw Note: VIM dated 08/12/11 GIVEN TODAY9 Admin Note: 09/04/10 VIM GIVEN TODAY [id number] Note: vis given 09-20-910 Result Comment: [07/21/2014] ins waiver gjndnf05Rzrys Note: [employer] vim 12/29/07 Medications betamethasone [...] Gm, 4 Refills, Maintenance, 01/22/21 11:54:00 EST, [facility], Patient sensitive to inactive ingredients of manufacturers drugs., 163.5, c... Start Date: 01/22/21 Status: Orderedestradiol 0.1 mg/g vaginal cream See Instructions, Insert 1 gram Vaginally weekly or 1/2 gram twice weekly 90 days, # 42.5 Gm, 4 Refills, Maintenance, 06/13/20 10:53:00 EDT, [facility], please dispense compounded med; we understand [...] 04/20/21 9:59:00 EST, EC Capsule, [facility], 163.5, cm, 01/22/21 [...]
--- OUTSIDE RECORDS SUMMARY | 2021-11-11 11:25 | XMS_ITS | Continuity of Care Document ---
:1950 Author Organization [facility] Address [address] [place] [address]- Care Team Providers Name Role Phone Linda XIE, Gayle Francois Primary Care Physician [phone] En[place] [facility] Date(s): 02/24/19 - 03/06/19 [facility] [address] [place] [address] [facility] Attending Physician: Raysa Rodgers Admitting Physician: AdmtrRaysa Referring Physician: AdmtrRaysa Allergies, Adverse Reactions, Alerts [...] vaccine, inactivated9 12/29/10 Given influenza virus vaccine, uvyncdsckad62 11/14/09 Given pneumococcal 13-valent vaccine 09/14/15 Given tetanus/diphtheria/pertussis, acel(Tdap)11 07/21/14 Given Fluzone (oldterm) 11/08/08 Given tetanus-diphtheria toxoids (Td)12 02/10/07 Given 1Result Comment: [facility]#[id number] Comment: [facility]#[phone] Comment: [12/01/2017] Done at [facility]. High dose.4Location History: [facility] [address] [place], [place] [address]Oczvcm Comment: [04/02/2016] No route or location specified.6Result Comment: [11/17/2014] [facility] xzjptpd5Cudede Comment: [11/12/2012] Vis given Opiw4Scdww Note: VIM dated 08/12/11 GIVEN TODAY9 Admin Note: 09/04/10 VIM GIVEN TODAY WJMXPOLY57Cljsh Note: vis given 09-20-910 Result Comment: [07/21/2014] ins waiver okvuqf09Kqquc Note: [employer] vim 12/29/07 Medications Evi [...] Gm, 1 Refills, Maintenance, 02/19/19 12:11:00 EST, [facility], 160, cm, 02/17/19 16:12:00 EST, Height, 60.2, kg, 11/18/18 8:50:00 EDT, Dry Weight Start Date: 02/19/19 Status: Ordereddiclofenac sodium 75 mg oral delayed release tablet 1 tablet = 75 mg, By Mouth, 2 times a day, with food, # 10 tablet, 0 Refills, Maintenance, 02/17/19 16:29:00 EST, EC Tablet, [facility], 160, cm, 02/17/19 [...] 10/16/18 16:38:27 EDT, Route to Pharmacy Electronically, [id number], [facility] Start Date: [...]
--- OUTSIDE RECORDS SUMMARY | 2021-11-11 11:25 | XMS_ITS | Continuity of Care Document ---
:1950 Author Organization [facility] Address [address] [place] [address]- Care Team Providers Name Role Phone Linda XIE, Gayle Francois Primary Care Physician [phone] Encounter [facility] Date(s): 07/16/19 - 07/23/19 [facility] [address] [place] [address]- [facility] Attending Physician: Gayle Mckeon MD Allergies, Adverse [...] vaccine, inactivated9 12/29/10 Given influenza virus vaccine, bgnkwduough34 11/14/09 Given pneumococcal 13-valent vaccine 09/14/15 Given tetanus/diphtheria/pertussis, acel(Tdap)11 07/21/14 Given Fluzone (oldterm) 11/08/08 Given tetanus-diphtheria toxoids (Td)12 02/10/07 Given 1Result Comment: [facility]#[phone] Comment: [facility]#[phone] Comment: [12/01/2017] Done at [facility]. High dose.4Location History: [facility] [address] [place], [place] [address]Psmvrv Comment: [04/02/2016] No route or location specified.6Result Comment: [11/17/2014] [facility] lrogjsw7Agqmil Comment: [11/12/2012] Vis given Bboy2Lqbhx Note: VIM dated 08/12/11 GIVEN TODAY9 Admin Note: 09/04/10 VIM GIVEN TODAY [id number] Note: vis given 09-20-910 Result Comment: [07/21/2014] ins waiver uudzgk33Shdbt Note: [employer] vim 12/29/07 Medications Evi [...] 10/16/18 16:38:27 EDT, Route to Pharmacy Electronically, [id number], [facility] Start Date: 10/16/18 Status: OrderedKnee Support See Instructions, # 1 each, Maintenance, R knee pn Playmaker 2, S REF: [id number], 05/24/13 17:02:10,Compound Start Date: 05/24/13 Status: OrderedPrevacid 30 mg oral enteric coated capsule 1 capsule = 30 mg, By Mouth, Daily, # 90 capsule, 3 Refills, Maintenance, 04/26/19 12:56:00 EDT, EC Capsule, [facility], 163.5, cm, 02/24/19 15:19:00 [...] oldest [Reference Range]: 1 Height 163.5 cm (07/16/19 12:57 PM) Social History Social History Type Response Smoking Status Never smoker; Tobacco user i n household: No entered on: 07/21/13 Sex
--- OUTSIDE RECORDS SUMMARY | 2021-11-11 11:25 | XMS_ITS | Continuity of Care Document ---
:1950 Author Organization [facility] Address [address] [place] [address]- Care Team Providers Name Role Phone Linda XIE, Gayle Francois Primary Care Physician [facility] Date(s): 06/13/20 - 07/13/20 [facility] [address] [place], [place] [address] Attending Physician: Raysa Rodgers Admitting Physician: [...] vaccine, inactivated9 12/29/10 Given influenza virus vaccine, xhqkopctcys93 11/14/09 Given pneumococcal 13-valent vaccine 09/14/15 Given tetanus/diphtheria/pertussis, acel(Tdap)11 07/21/14 Given Fluzone (oldterm) 11/08/08 Given tetanus-diphtheria toxoids (Td)12 02/10/07 Given 1Result Comment: [facility]#[id number] Comment: [facility]#[phone] Comment: [12/01/2017] Done [facility] High dose.4Location History: [facility] [address] [place], [place] [address]Nsnbdn Comment: [04/02/2016] No route or location specified.6Result Comment: [11/17/2014] [facility] yzylsoz8Qrxuxo Comment: [11/12/2012] Vis given Lbnl2Ompdq Note: VIM dated 08/12/11 GIVEN TODAY9 Admin Note: 09/04/10 VIM GIVEN TODAY AKXXHYBF28Risax Note: vis given 09-20-910 Result Comment: [07/21/2014] ins waiver irlndx12Thxbc Note: [employer] vim 12/29/07 Medications betamethasone [...] Refills, Maintenance, 06/13/20 10:53:00 EDT, [facility], please dispense compounded med; we understand that [...]
--- OUTSIDE RECORDS SUMMARY | 2021-11-11 11:25 | XMS_ITS ---
:1950 Author Name Gayle Magdaleno Care Team Providers Name Role Phone Gayle Magdaleno Unavailable Unavailable PROBLEMS Type Condition ICD9-CM Code NOV32-UF Code Onset Condition SNO MED Code Dates Status Problem Tinea unguium B35.1 Active 234974 005 ALLERGIES Substance Reaction Event Type Date Status Amoxicillin rash,itching Drug Allergy 16 Dec, 2020 Active Penicillin rash,itching Drug Allergy 16 Dec, 2020 Active Aspirin stomach upset Drug Allergy 16 Dec, 2020 Active Latex rash,itching Drug Allergy Dec, Active ENCOUNTERS Encounter Location Date Diagnosis [address], [place] [address], [place] [address] Dec, Tin ea unguium B35.1 ; [place], [place] Pain in right t oe(s) [address] M79.674 ; Pain i n left toe(s) M79.675 a nd Xerosis cutis L8 5.[address] Sep, Jaylon n in right foot [place] M79.671 ; Pain in right [address] ankle and joints of right foot M25.5 71 ; Metatarsalgia, r ight foot M77.41 ; Ta ilor's bunion of right foot M21.621 ; Pain i n left foot M79.672 ; P ain in left ankle and j oints of left foot M25.57 2 ; Metatarsalgia, l eft foot M77.42 ; Tailor' s bunion of left foot M21 .622 ; Tinea unguium B3 5.1 ; Pain in right to e(s) M79.674 and Pain in left toe(s) M79.675 [facility] [address], [place] [address] [facility] [place] [address] Aug, Plantar w art B07.0 and [place], [place] [address] Jul, [place] [address] Jul, [place] ntar wart B07.0 and [place] Pain in right [place] [address] June, [place] [address] [facility] June, Dis order of the skin and [place] subcutaneous ti ssue, [address] unspecified L98. 9 ; Plantar wart B07 .0 and Pain in right fo ot M79.[address] May, [place] ntar wart B07.0 ; [place] Tinea unguium B 35.1 ; [address] Pain in right to e(s) M79.674 ; Pain i n right foot M79.671 and Pain in left toe(s) M79. [address] Mar, [place] [address] Jul, [place] ntar wart B07.0 ; [place] Tinea unguium B 35.1 ; [address] Xerosis cutis L8 5.3 ; Pain in right to e(s) M79.674 ; Pain i n right foot M79.671 and Pain in left toe(s) M79. [address] June, [facility] [place] [address] [facility] [place] [address] May, [place] [address] May, [place] ntar wart B07.0 ; [place] Xerosis cutis L 85.3 ; [address] Pain in right fo ot M79.671 and Tail or's bunion of right foot M21.[address] Feb, [place] [address] Feb, Jaylon n in right ankle and [place] joints of right foot [address] M25.571 and Tail or's bunion of right foot M21.621 [place] [address] Jan, [place] [address] [facility] [place] [address] Jan, [place] [address] [facility] [place] [address] Jan, Tinea brain uium B35.1 ; [place], [place] Pain in right an kle and [address] joints of right foot M25.571 ; Ingrow ing nail L60.0 ; Tailor's bunion of right foot M2 1.621 ; Pain in right to e(s) M79.674 ; Metata rsalgia, right foot M77.4 1 ; Pain in left toe(s) M 79.675 and Cutaneous ab scess of right foot L02.[address] Aug, Pos terior tibial [place] tendinitis, rig [place]t leg [address] M76.821 and Spra in of other ligament o f right ankle, subsequen t encounter S93.[address] June, Jaylon n in right ankle and [place] joints of right foot [address] M25.571 ; 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 ior tibial tendiniti s, right leg M76.821 and Sprain of other ligamen t of right ankle, ini tial encounter S93.49 1A IMMUNIZATIONS Vaccine Route Administration Date Status COVID-19 Pfizer BioNTech Vaccine Unknown Nov 07, 2020 Administered Influenza Unknown Dec 05, 2020 Administered SOCIAL HISTORY Qualifiers Date Never Smoker REASON FOR REFERRAL FUNCTIONAL STATUS PLAN OF CARE Activity Details Future/Pending Procedure 74693-NPUIWHY NAIL, 6 OR MOR E Future/Pending Procedure 39754-CDHSGOY NAIL, 6 OR MOR E Future/Pending Procedure 95433-Smuv Destruction, -14 Future/Pending Procedure 58698-Bvnm Destruction, -14 Future/Pending Procedure 27805 - Punch Biopsy of Skin Lesion Future/Pending Procedure 50293 - Punch Biopsy of Skin Additional Lesions Future/Pending Procedure 13739-VKGBYTW NAIL, 6 OR MOR E Future/Pending Procedure 14220-Quwu Destruction, -14 Future/Pending Procedure 20433-LYGMSIB NAIL, 6 OR MOR E Future/Pending Procedure 82645-Hbkv Destruction, -14 Future/Pending Procedure 52437-Tefs Destruction, -14 Future/Pending Procedure 70730-BPNSVXO NAIL, 6 OR MOR E Future/Pending Procedure 00526-Reudvauo Plate Future/Pending Procedure 54826 I&D ABSCESS- SIMPLE,SI NGLE VITAL SIGNS Height 5 ft 3 in in 2020-12-26 Weight 129 lbs 2020-12-26 BMI 22.85 kg/m2 2020-12-26 Heart Rate 54 /min 2018-08-10 Blood pressure systolic 110 mm Hg 2020-12-26 Blood pressure diastolic 70 mm Hg 2020-12-26 MEDICATIONS Medication Instructions Dosage Frequency Start End Duration Statu s Date Date Ammonium Externally 1 application 12h 30 days Active Lactate 12 % Twice a day to affected area Mupirocin Not-Taki ng Evi Active Lansoprazole Active Montelukast Orally Once a 1 tablet in 24h Ac tive Sodium 10 MG day the evening Famotidine Active Restasis 0.05 % Ophthalmic 1 null into 12h A ctive Twice a day affected eye PROCEDURES Procedure Date Ordered Result Body Site PUNCH BX SKIN SINGLE LESION July 07, 2018 DEBRIDE NAIL, 6 OR MORE Dec 26, 2020 Wart Destruction, 1-August 10, 2018 Insoles-Spenco arch ($35) June 14, 2016 X-RAY EXAM OF LEFT FOOT 3V Sep 26, 2020 X-RAY EXAM OF RIGHT FOOT 3V Sep 26, 2020 DEBRIDE NAIL, 6 OR MORE Sep 26, 2020 DRAINAGE OF SKIN ABSCESS Jan 30, 2017 Wart Destruction, -July 21, 2018 Wart Destruction, -May 30, 2017 Avulsion Plate Jan 30, 2017 Wart Destruction, -July 29, 2017 X-RAY EXAM OF RIGHT FOOT 3V Jan 30, 2017 PUNCH BX SKIN EA SEP/ADDL July 07, 2018 DEBRIDE NAIL, 6 OR MORE June 05, 2018 PUNCH BX SKIN EA SEP/ADDL July 07, 2018 DEBRIDE NAIL, OR MORE July 29, 2017 Wart Destruction, -June 05, 2018 Post op shoe ($25) Jan 30, 2017 DEBRIDE NAIL, 6 OR MORE Jan 30, 2017 RESULTS Name Result Date Reference Range X ray : Foot, left 3V X ray : Foot, right 3V X ray : Foot, right 3V REASON FOR VISIT Insurance Providers [facility] Member Patient Patient Patient Patient Patient Subscriber Subscriber Subscriber Group Insurance Plan Plan Plan Plan ID Relationship Address Phone Name Date of ID Name Date of No Type Insurance Insurance Insurance Coverage to Subscriber Address Phone Name Dates Medicare National [id number] Medicare self Kay [id number] [facility] [address] [facility] [address] [place] [address] [employer] [phone] [employer] self [place] [phone] [id number] [facility] [id number] [address] [facility] 0 [facility] [address] MEDICAL (GENERAL) HISTORY Type Description Date Medical History Back,Hip,and Knee pain Medical History Headaches Medical History Measles Medical History Chicken pox Medical History Varicose veins Surgical History laminectomy L4-5 1987 Surgical History lleft knee torn meniscus 2002 Surgical History Colonoscopy and Endoscopy 07/28/2017
--- OUTSIDE RECORDS SUMMARY | 2021-11-11 11:25 | XMS_ITS | Continuity of Care Document ---
:1950 Author Organization [facility] Address [address] [place] [address]- Care Team Providers Name Role Phone Linda XIE, Gayle Francois Primary Care Physician [phone] [facility] - [facility]14/20 [facility] [address] [place], [place] [address] Allergies, Adverse Reactions, Alerts Substance Reaction [...] vaccine, inactivated9 12/29/10 Given influenza virus vaccine, eexsaqozdfj87 11/14/09 Given pneumococcal 13-valent vaccine 09/14/15 Given tetanus/diphtheria/pertussis, acel(Tdap)11 07/21/14 Given Fluzone (oldterm) 11/08/08 Given tetanus-diphtheria toxoids (Td)12 02/10/07 Given 1Result Comment: [facility]#[id number] Comment: [facility]#[id number] Comment: [12/01/2017] Done at [facility]. High dose.4Location History: [facility] [address] [place], [place] [address]Ajyspk Comment: [04/02/2016] No route or location specified.6Result Comment: [11/17/2014] [facility] rzcjvxb9Shqbel Comment: [11/12/2012] Vis given Ilcu8Jokel Note: VIM dated 08/12/11 GIVEN TODAY9 Admin Note: 09/04/10 VIM GIVEN TODAY PGAMSEHZ26Jeqbz Note: vis given 09-20-910 Result Comment: [07/21/2014] ins waiver pfdqpb78Oqngh Note: [employer] vim 12/29/07 Medications Evi [...] Gm, 1 Refills, Maintenance, 02/19/19 12:11:00 EST, [facility], 160, cm, 02/17/19 16:12:00 EST, Height, 60.2, kg, 11/18/18 8:50:00 EDT, Dry Weight Start Date: 02/19/19 Status: Ordereddiclofenac sodium 75 mg oral delayed release tablet 1 tablet = 75 mg, By Mouth, 2 times a day, with food, # 10 tablet, 0 Refills, Maintenance, 02/17/19 16:29:00 EST, EC Tablet, [facility], 160, cm, 02/17/19 16:12:00 EST, Height, 60.2, kg, 11/18/18 8:50:00 EDT, Dry Weight Start Date: 02/17/19 Stop Date: 02/22/19 Status: Orderedestradiol 0.1 mg/g vaginal cream See Instructions, Insert 1 gram Vaginally weekly or 1/2 gram twice weekly 90 days, # 42.5 Gm, 1 Refills, Maintenance, 03/08/20 12:19:00 EST, [facility], please dispense compounded med; we understand that [...]
--- OUTSIDE RECORDS SUMMARY | 2021-11-11 11:25 | XMS_ITS | Continuity of Care Document ---
:1950 Author Organization [facility] Address [address] [place] [address]- Care Team Providers Name Role Phone Linda XIE, Gayle Francois Primary Care Physician [phone] Encounter [facility] Date(s): 09/13/21 - 10/13/21 [facility] [address] [place], [place] [address] Attending Physician: Admtr, Ar8 Allergies, Adverse Reactions, Alerts Substance Reaction Severity Status doxycycline GI effects Active amoxicillin hives Active Lactose Active omeprazole Active Alomide Active Latex Active Immunizations Given and Recorded Vaccine Date Status Refusal Reason SARS-CoV-2 mRNA ([id number]) vax 06/06/21 Recorde d influenza virus vaccine, [...] 23-valent vaccine9 05/11/18 Given hepatitis B adult [id number] 05/11/18 Given zoster vaccine, inactivated 04/23/18 Recorded pneumococcal 13-valent vaccine 09/14/15 Given tetanus/diphtheria/pertussis, acel(Tdap)11 07/21/14 Given Fluzone (oldterm) 11/08/08 Given tetanus-diphtheria toxoids (Td)12 02/10/07 Given 1Result Comment: [12/01/2017] Done at [facility] High dose.2Location History: [facility] [address] [place], [place] [id number] Comment: [04/02/2016] No route or location specified.4Result Comment: [11/17/2014] [facility] [id number] Comment: [11/12/2012] Vis given Fzrs7Kosyk Note: VIM dated 08/12/11 GIVEN TODAY7 Admin Note: 09/04/10 VIM GIVEN TODAY [id number] Note: vis given Result Comment: [facility]#[id number] Comment: [facility]#[id number] Comment: [07/21/2014] ins waiver [id number] Note: [facility] vim 12/29/07 Medications betamethasone [...] Refills, Maintenance, 01/22/21 11:54:00 EST, [facility], Patient sensitive to inactive ingredients of manufacturers [...] 04/27/21 10:46:00 EDT, Route to Pharmacy Electronically, [facility] # 50, 163.5, cm, 01/22/21 11:50:00 [...] Team PersonnelName: Linda XIE, Gayle Francois Address: [address] [place] [id number]
--- OUTSIDE RECORDS SUMMARY | 2021-11-11 11:25 | XMS_ITS | Continuity of Care Document ---
:1950 Author Organization [facility] Address [address] [place] [address]- Care Team Providers Name Role Phone Linda XIE, Gayle Francois Primary Care Physician [phone] Encounter [facility] Date(s): 05/30/21 - 06/29/21 [facility] [address] [place], [place] [address] Allergies, Adverse Reactions, Alerts Substance [...] vaccine, inactivated9 12/29/10 Given influenza virus vaccine, [id number] 11/14/09 Given pneumococcal 13-valent vaccine 09/14/15 Given tetanus/diphtheria/pertussis, acel(Tdap)11 07/21/14 Given Fluzone (oldterm) 11/08/08 Given tetanus-diphtheria toxoids (Td)12 02/10/07 Given 1Result Comment: [facility]#[id number] Comment: [facility]#[id number] Comment: [12/01/2017] Done at [facility] High dose.4Location History: [facility] [address] [place], [place] [address]Qwtqtf Comment: [04/02/2016] No route or location specified.6Result Comment: [11/17/2014] [facility] [id number] Comment: [11/12/2012] Vis given Adle7Eiehc Note: VIM dated 08/12/11 GIVEN TODAY9 Admin Note: 09/04/10 VIM GIVEN TODAY [id number] Note: vis given 09-20-910 Result Comment: [07/21/2014] ins waiver [id number] Note: [facility] vim 12/29/07 Medications betamethasone [...] 4 Refills, Maintenance, 01/22/21 11:54:00 EST, [facility], Patient sensitive to inactive ingredients of manufacturers drugs., 163.5, c... Start Date: 01/22/21 Status: Orderedestradiol 0.1 mg/g vaginal cream See Instructions, Insert 1 gram Vaginally weekly or 1/2 gram twice weekly 90 days, # 42.5 Gm, 4 Refills, Maintenance, 06/13/20 10:53:00 EDT, [facility], please dispense compounded med; we understand [...] Refills, Maintenance, 04/20/21 9:59:00 EST, EC Capsule, [facility] # [facility], 163.5, cm, 01/22/21 [...]
--- OUTSIDE RECORDS SUMMARY | 2021-11-11 11:25 | XMS_ITS | Continuity of Care Document ---
:1950 Author Organization [facility] Address [address] [place] [address]- Care Team Providers Name Role Phone Linda XIE, Gayle Francois Primary Care Physician En[place] [facility] Date(s): 05/31/21 - 06/07/21 [facility] [address], [place] [address] Encounter Diagnosis Finger pain, right (Discharge Diagnosis) - 05/31/21 Fall (Discharge Diagnosis) - 05/31/21 Attending Physician: Ana Laura Peterson NP Allergies, Adverse Reactions, Alerts Substance Reaction Severity [...] vaccine, inactivated9 12/29/10 Given influenza virus vaccine, [id number] 11/14/09 Given pneumococcal 13-valent vaccine 09/14/15 Given tetanus/diphtheria/pertussis, acel(Tdap)11 07/21/14 Given Fluzone (oldterm) 11/08/08 Given tetanus-diphtheria toxoids (Td)12 02/10/07 Given 1Result Comment: [facility]#[id number] Comment: [facility]#[id number] Comment: [12/01/2017] Done at [facility] High dose.4Location History: [facility] [address] [place], [place] [id number] Comment: [04/02/2016] No route or location specified.6Result Comment: [11/17/2014] [facility] [id number] Comment: [11/12/2012] Vis given Ixpc6Mzelv Note: VIM dated 08/12/11 GIVEN TODAY9 Admin Note: 09/04/10 VIM GIVEN TODAY [id number] Note: vis given 09-20-910 Result Comment: [07/21/2014] ins waiver [id number] Note: [facility] vim 12/29/07 Medications betamethasone [...] Refills, Maintenance, 01/22/21 11:54:00 EST, [facility], Patient sensitive to inactive ingredients of manufacturers drugs., 163.5, c... Start Date: 01/22/21 Status: Orderedestradiol 0.1 mg/g vaginal cream See Instructions, Insert 1 gram Vaginally weekly or 1/2 gram twice weekly 90 days, # 42.5 Gm, 4 Refills, Maintenance, 06/13/20 10:53:00 EDT, [facility], please dispense compounded med; we understand that FDA approved med is avai... Start Date: 06/13/20 Status: Orderedfamotidine 20 mg oral tablet 20 mg, 1, tablet, By Mouth, 2 times a day, # 180 tablet, Refills 3, Tot. Refills 3, Maintenance, 04/27/21 10:46:00 EDT, Route to Pharmacy Electronically, [facility] # [facility], [...] Dates Health Status Clinical In formant Service Finger pain, Discharge 05/31/21 right Diagnosis Fall Discharge 05/31/21 Diagnosis Vital Signs Most recent to oldest [Reference Range]: 1 Height 163.5 cm (05/31/21 9:12 AM) Oxygen Saturation [94-100 %] 98 % (05/31/21 9:12 AM) Pulse Rate [55-90 bpm] 69 bpm (05/31/21 9:12 AM) Blood Pressure [90-138/55-84 mm Hg] 120/74 mm Hg (05/31/21 9:12 AM) Blood pressure sites Arm, left (05/31/21 9:12 AM) Social History Social History Type Response Smoking Status Never smoker; Tobacco user i n household: No entered on: 07/21/13 Sex
[2021-11-11] MEDS: oxyCODONE HCl Immed Release 5 MG TABLET PO (11:44)
--- NOTE | 2021-11-11 11:46 | PC.NURSE ---
Pt back from cat scan, medicated with oxycotin
--- NOTE | 2021-11-11 13:30 | PC.NURSE ---
Pt to MRI via stretch , pt continue to have c-collar in place.
[2021-11-11 13:32] VITALS: BP 149/75; PULSE 66; O2SAT 98
[2021-11-11 14:59] VITALS: BP 153/70; PULSE 71; RESP 12; TEMP 36.5; O2SAT 97
[2021-11-11 17:15] VITALS: BP 120/90; PULSE 88; RESP 16; TEMP 36.6; O2SAT 96
--- NOTE | 2021-11-12 12:25 | MHC.CM.ED ---
Received case management consult from Matt CHANDLER. Patient came to ER after a fall. Found to have wrist and nasal fracture. Requesting VNA. Patient has already been discharged home. intermediate arranged with Dilia JACKSON. T/W spoke with patient via telephone at [phone]. Patient is aware Dilia will call her to arrange a vist. Continue to monitor for d/c needs.
== END 2021-11-11 17:40 | disposition home or self-care (01) ==
PROVIDERS: Emergency Provider Emergency Medicine Emergency Medical Services; PCP Family Medicine
DX: S62.101A Fracture of unspecified carpal bone, right wrist, initial encounter for closed fracture (principal); S02.2XXA Fracture of nasal bones, initial encounter for closed fracture; R51.9 Headache, unspecified; M45.2 Ankylosing spondylitis of cervical region; M25.531 Pain in right wrist; M25.562 Pain in left knee; M54.6 Pain in thoracic spine; R10.2 Pelvic and perineal pain; W10.9XXA Fall (on) (from) unspecified stairs and steps, initial encounter; Y93.9 Activity, unspecified; Y92.9 Unspecified place or not applicable; Y99.9 Unspecified external cause status; Z79.899 Other long term (current) drug therapy
CPT/HCPCS: 29105; 70450; 70486; 71250; 72125; 72141; 73110; 73130; 73564; 74176; 99285

== ENCOUNTER 2021-11-13 07:45 | Outpatient (REF) | payer MEDICARE, SELFPAY ==
--- NOTE | ~2021-11-13 | XR_ITS ---
EXAMINATION: XR WRIST, RIGHT CLINICAL INFORMATION: Fracture COMPARISON: Previous x-ray 11/11/2021 TECHNIQUE: PA, lateral, and oblique views of the right wrist. FINDINGS: There is a comminuted impacted minimally displaced fracture of the right distal radius. Similar to previous exam 11/11/2021. Fracture appears intra-articular with the radiocarpal joint. No other fracture is seen. There is diffuse soft tissue swelling about the wrist. XR/XR wrist RT min 3V IMPRESSION: No change in right distal radius fracture.
== END 2021-11-13 07:46 | disposition home or self-care (01) ==
LOC: HO.HOSX 07:45
PROVIDERS: Visit Provider Physician Assistant
DX: S52.501A Unspecified fracture of the lower end of right radius, initial encounter for closed fracture (principal); X58.XXXA Exposure to other specified factors, initial encounter; Y93.9 Activity, unspecified; Y92.9 Unspecified place or not applicable; Y99.9 Unspecified external cause status; Z79.891 Long term (current) use of opiate analgesic; Z79.899 Other long term (current) drug therapy
CPT/HCPCS: 73110; 99202

== ENCOUNTER 2021-11-22 06:49 | Day surgery (SDC) | payer MEDICARE, SELFPAY ==
--- NOTE | 2021-11-21 11:59 | HO.ANESPROP2 ---
Documented by User: Amina Mcfadden NP 11/21/21 12:00 HPI - Anesthesia Eval Consult details Narrative: 71yo F for Right Radius Distal Fracture ORIF PMFSH Active Problems Active Problems: All Active Problems (Updated 11/13/21 @ 09:11 by Liliam Waite) Fracture of right distal radius (Acute) Past Medical History Medical History GERD (gastroesophageal reflux disease) Low back pain syndrome Migraine NAFLD (nonalcoholic fatty liver disease) Osteoarthritis Osteoporosis Seasonal allergies Varicose veins of legs (09/13/21) Surgical History Surgical History History of lumbar laminectomy Status post arthroscopic surgery of left knee Status post arthroscopic surgery of right knee Social History Social History (Updated 11/13/21 @ 09:02 by Noemi Cross [facility]) Patient Tobacco Use Status: Never used Tobacco Are you DNR?: No Advance Directives: No Advance Directives Information Provided: Yes Advance Directives on File: No Nutrition Risks: No Nutritional Risk Current occupational status: employed 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 Allergies Allergy/AdvReac Type Severity Reaction Status Date / Time amoxicillin AdvReac Rash Verified 11/22/21 07:13 latex AdvReac Rash Verified 11/22/21 07:14 NSAIDS (Non-Steroidal AdvReac Abdominal Verified 11/22/21 08:52 Anti-Inflamma Pain Home Medications Medication Instructions Recorded Confirmed Last Taken Type famotidine 20 mg tablet 20 mg PO BID 11/13/21 11/22/21 11/21/21 History lansoprazole 30 mg capsule,delayed 30 mg PO DAILY 11/13/21 11/22/21 11/21/21 History release montelukast 10 mg tablet 10 mg PO DAILY 11/13/21 11/22/21 11/21/21 History Restasis 11/22/21 11/22/21 Unknown History estradiol 0.01% (0.1 mg/gram) vaginal 11/22/21 11/22/21 11/21/21 History vaginal cream (Estrace) Exam Exam Date and Time: November 21, 2021 1159 Assessment and Plan Assessment Anesthesia Assessment: Chart Reviewed Documented by User: Herbert Abraham MD 11/22/21 14:40 HPI - Anesthesia Eval Consult details Narrative: 71yo F for Right Radius Distal Fracture ORIF back pain with radiation to LE neck pain with radiation to UE left thumb and hand thompson PMFSH Past Medical History Medical History GERD (gastroesophageal reflux disease) Low back pain syndrome Migraine NAFLD (nonalcoholic fatty liver disease) Osteoarthritis Osteoporosis Seasonal allergies Varicose veins of legs (09/13/21) Family History Family history of problems with anesthesia: No Surgical History Surgical History History of lumbar laminectomy Status post arthroscopic surgery of left knee Status post arthroscopic surgery of right knee History of Problems with Anesthesia: No Social History Social History (Updated 11/13/21 @ 09:02 by Noemi Cross CMA) Patient Tobacco Use Status: Never used Tobacco Are you DNR?: No Advance Directives: No Advance Directives Information Provided: Yes Advance Directives on File: No Nutrition Risks: No Nutritional Risk Current occupational status: employed 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 Allergy/AdvReac Type Severity Reaction Status Date / Time amoxicillin AdvReac Rash Verified 11/22/21 07:13 latex AdvReac Rash Verified 11/22/21 07:14 NSAIDS (Non-Steroidal AdvReac Abdominal Verified 11/22/21 08:52 Anti-Inflamma Pain Home Medications Medication Instructions Recorded Confirmed Last Taken Type famotidine 20 mg tablet 20 mg PO BID 11/13/21 11/22/21 11/21/21 History lansoprazole 30 mg capsule,delayed 30 mg PO DAILY 11/13/21 11/22/21 11/21/21 History release montelukast 10 mg tablet 10 mg PO DAILY 11/13/21 11/22/21 11/21/21 History Restasis 11/22/21 11/22/21 Unknown History estradiol 0.01% (0.1 mg/gram) vaginal 11/22/21 11/22/21 11/21/21 History vaginal cream (Estrace) Exam Airway Mallampati Class: III TM Dist: >3cm Neck ROM: Full Loose/Missing/Broken Teeth: Yes (Fillings ) Heart: S1,S2 Lungs: b/l breath sounds Assessment and Plan Assessment Anesthesia Assessment: Anesthesia Plan Discussed Final Anesthetic Review Family History of Problems with Anesthesia: No History of Problems with Anesthesia: No NPO: Yes ASA Class: II Final Preanesthetic Review: Meds/Allgs Chart Reviewed, Consent Obtained/Reviewed and Anes Risks/Benef Reviewed Patient Risk: Intermediate Procedure Risk: Intermediate Anesthetic Plan Anesthetic Plan: GA and Regional Block Disposition: Standard PACU
--- NOTE | ~2021-11-22 | FL_ITS ---
EXAMINATION: XR FLUOROSCOPY WITH IMAGES CLINICAL INFORMATION: Fracture distal right radius. COMPARISON: Radiographs right wrist 11/13/2021 TECHNIQUE: Fluoroscopy performed by Dr. Char Bo. Fluoroscopy time: 22 seconds. Cumulative Dose: 0.6406 mGy. DAP: 0.0387 Gycm2. Images: 3. FINDINGS: Distal radial fracture is reduced with volar side plate and screws. Hardware appears intact. Fracture fragments are in near-anatomic alignment. Ulnar variance is neutral. No dislocation. FL/FL guidance in OR IMPRESSION: Status post open reduction and internal fixation distal radial fracture.
[2021-11-22 07:07] VITALS: BMI 23.7
[2021-11-22] MEDS: Lactated Ringers 1,000 ML 100 ML IVCONT (07:59)
[2021-11-22 08:08] VITALS: BP 124/75; PULSE 65; RESP 18; TEMP 36.5; O2SAT 97
--- NOTE | 2021-11-22 09:49 | MHC.SHP ---
Pre-Procedural Eval Section A Date of Service: 11/22/21 The patient is an INPATIENT: No Changes since office visit: No Cold of Flu in the past 2 weeks, No New Medical Problems, No Changes in Medication and No Patient answered all questions The History & Physical has been completed within 30 days and I have reviewed it.: Yes Section B Chief Complaint: Unspecified fracture of the lower end of right rad Allergies: Allergies Allergy/AdvReac Type Severity Reaction Status Date / Time amoxicillin AdvReac Rash Verified 11/22/21 07:13 latex AdvReac Rash Verified 11/22/21 07:14 NSAIDS (Non-Steroidal AdvReac Abdominal Verified 11/22/21 08:52 Anti-Inflamma Pain Plan I have reviewed the history and physical and performed a pertinent physical examination on my patient. No changes have occurred unless specified.
--- NOTE | 2021-11-22 09:50 | P.OP_ITS ---
Operative Note Operative Note Date of Service: 11/22/21 Narrative: Operative Note Narrative: Preop diagnosis: 1. Right comminuted intra-articular Distal radius fracture Postop diagnosis: Same Procedure: 1. Distal radius fracture open reduction internal fixation , 2 part intra-articular Surgeon: Char Bo MD Anesthesia: General anesthesia plus regional block Findings: right comminuted intra-articular distal radius fracture, 2 part Implants: A 3 hole Accu Med volar locking plate, with 4x 2.3 mm locking pegs/screws, and 3 3.5 mm cortical screws Tourniquet time: 39 minutes EBL: 5.0 ml Specimen: None Drains: None Complications: None Disposition: Brought to the recovery room in stable condition Plan: Follow-up in 10-14 days for wound check, suture removal and postop radiographs The patient will be placed in either a short-arm cast Encouraged no lifting of anything heavier than a cell phone. Please encourage active and passive range of motion of the digits. Follow-up at 4-5 weeks postop for repeat radiographs. Indications: The patient is a 71 year old woman with a comminuted intra- articular right distal radius fracture . The risks and benefits of operative treatment, including but not limited to risk of damage to blood vessels, nerves, tendons, infection, recurrence, persistent pain or numbness, incomplete resolution of preoperative symptoms, or need for further surgery were discussed with the patient and they wished to proceed with surgery. Procedure: Once consent was obtained patient was brought back to the operating suite and placed in the operating table in a supine position. A regional block was performed by the anesthesia team. Perioperative antibiotics and anesthesia was administered by the anesthesia team. A tourniquet was applied to the proximal aspect of the right upper extremity and the limb was prepped and draped in a standard surgical fashion. The limb was elevated exsanguinated with Esmarch bandage and the tourniquet inflated to 250 mm of mercury for a total tourniquet time of 39 minutes. The FluoroScan was used throughout the case to assess our reduction, and facilitate implant placement. A gentle closed reduction was 1st performed on the patient's right distal radius fracture. Was assessed radiographically before proceeding with the reduction internal fixation. I then made an 8 cm longitudinal incision over the distal aspect of the flexor carpi radialis tendon. The incision was made through the skin to the subcutaneous tissue using a 15. Blade. Then carefully dissected down to flexor carpi radialis tendon she tenotomy scissors. The FCR tendon sheath was then incised longitudinally using tenotomy scissors under direct visualization. The FCR tendon was then retracted ulnarly. I then made a longitudinal incision in the volar forearm fascia through the floor of FCR tendon sheath using tenotomy scissors under direct visualization. I identified the interval between the radial artery and the flexor tendons. This interval was developed further with my index finger, releasing some of the muscular fibers of the flexor pollicis longus. A dull weatlander retractor was then placed. I then created an ulnarly based flap of the pronator quadratus by releasing the radial and distal edges using a 15. Blade. A Wayne elevator was used to elevate the pronator quadratus from the volar surface of the distal radius. This then revealed to us our distal radius fracture. An open reduction was then performed on our distal radius fracture. I then placed a short narrow 3 hole Accu Med volar locking plate on the volar surface of the distal radius. I placed a single K-wire through the distal aspect of the plate and into the distal radius. This was assessed using fluoroscopic images. I was satisfied with the placement of our plate. I then placed 4x 2.3 mm locking screws/pegs in the distal aspect of the plate and distal radius by 1st drilling bicortically with a 1.8 mm drill bit, measuring with a depth gauge, and placing the appropriate length locking screws/pegs. The placement of our plate and screws was then assessed again using fluoroscopic images. The once satisfied with the placement of the volar locking plate and screws on the distal aspect of the distal radius, the plate was then reduced to the shaft of the radius. I then placed 3 3.5 mm cortical screws to the proximal aspect of the plate and into the shaft of the radius. This was done by 1st drilling bicortically with a 2.8 mm drill bit, measuring with a depth gauge, and placing the appropriate length screw. Final radiographs were then obtained. The DRUJ was assessed and found to be stable on exam. I was satisfied with our reduction and placement of all implants. At this point the wound was irrigated with normal saline. The pronator quadratus was reduced back over the volar locking plate using some 3-0 Vicryl suture material. The tourniquet was then deflated and hemostasis was obtained with a brief period of local pressure and bipolar monopolar electrocautery. The subcutaneous layer was then reapproximated using some 4-0 Vicryl suture, and the skin edges were reapproximated using some 5 0 Prolene suture. The wound was then infiltrated with some 0.5% plain ropivacaine postop pain control. A sterile dressing and a short dorsal splint allowing for active flexion and extension of the digits was applied. The patient appears to have tolerated the procedure well and with no complications. All digits were well vascularized conclusion of the case.
[2021-11-22 11:13] VITALS: BP 136/67; PULSE 63; RESP 18; TEMP 36.5; O2SAT 100
[2021-11-22 11:18] VITALS: BP 126/64; PULSE 56; RESP 18; O2SAT 100
[2021-11-22 11:23] VITALS: BP 134/65; PULSE 67; RESP 18; O2SAT 100
[2021-11-22 11:28] VITALS: BP 122/61; PULSE 77; RESP 18; O2SAT 100
[2021-11-22 11:43] VITALS: BP 110/57; PULSE 71; RESP 18; TEMP 36.7; O2SAT 100
== END 2021-11-22 14:40 | disposition home or self-care (01) ==
PROVIDERS: PCP Family Medicine; Visit Provider Orthopaedic Surgery
PROC: (CPT 25608; principal; 2021-11-22 08:50)
DX: S52.571A Other intraarticular fracture of lower end of right radius, initial encounter for closed fracture (principal); W10.9XXA Fall (on) (from) unspecified stairs and steps, initial encounter; Y93.9 Activity, unspecified; Y92.89 Other specified places as the place of occurrence of the external cause; Y99.8 Other external cause status; M81.0 Age-related osteoporosis without current pathological fracture; M19.90 Unspecified osteoarthritis, unspecified site; K76.0 Fatty (change of) liver, not elsewhere classified; Z79.899 Other long term (current) drug therapy; Z88.1 Allergy status to other antibiotic agents; Z88.8 Allergy status to other drugs, medicaments and biological substances; Z91.040 Latex allergy status
CPT/HCPCS: 25608; C1713; C1769; J0690; J2250; J2370; J2405; J2795; J3010

== ENCOUNTER 2021-12-04 17:31 | Outpatient (REF) | payer MEDICARE, SELFPAY ==
--- NOTE | ~2021-12-04 | XR_ITS ---
EXAMINATION: XR WRIST, RIGHT CLINICAL INFORMATION: Pain COMPARISON: Right wrist radiograph from 11/13/2021 TECHNIQUE: PA, lateral, and oblique views of the right wrist. FINDINGS: Postsurgical changes status post open reduction internal fixation of distal radius fracture now stabilized with plate and screws. Orthopedic hardware is grossly intact. Fracture line is mildly evident. Decreased bone mineral density which decreases sensitivity for fracture evaluation. Multi joint arthritic changes. Joint spaces and alignment are otherwise maintained. Soft tissues are unremarkable. XR/XR wrist RT min 3V IMPRESSION: 1. Postsurgical changes status post open reduction internal fixation of distal radius fracture now stabilized with plate and screws. Orthopedic hardware is grossly intact. 2. Decreased bone mineral density which decreases sensitivity for fracture evaluation.
== END 2021-12-04 17:32 | disposition home or self-care (01) ==
LOC: HO.HOSX 17:31
PROVIDERS: Visit Provider Orthopaedic Surgery
DX: M25.531 Pain in right wrist (principal)
CPT/HCPCS: 73110

== ENCOUNTER → 2021-12-05 09:26 | Outpatient (BNVA) | payer MEDICARE, SELFPAY | PROVIDERS: PCP Family Medicine; Visit Provider Orthopaedic Surgery | DX: S52.501D Unspecified fracture of the lower end of right radius, subsequent encounter for closed fracture with routine healing (principal) | CPT/HCPCS: 73110; 99212 ==

== ENCOUNTER 2021-12-24 16:00 | Outpatient (REF) | payer MEDICARE, SELFPAY ==
--- NOTE | ~2021-12-24 | XR_ITS ---
EXAMINATION: XR WRIST, RIGHT CLINICAL INFORMATION: Right wrist pain. COMPARISON: None TECHNIQUE: PA, lateral, and oblique views of the right wrist. FINDINGS: Generalized osteopenia. Prior open reduction internal fixation distal radial fracture with volar side plate and multiple screws. Hardware intact. No visible fracture line. No destructive process or osteolysis. Mild posttraumatic deformity base ulnar styloid. XR/XR wrist RT min 3V IMPRESSION: 1. Status post open reduction internal fixation distal radial fracture. 2. Hardware intact. No visible fracture line. No destructive process or osteolysis.
== END 2021-12-24 16:01 | disposition home or self-care (01) ==
LOC: HO.HOSX 16:00
PROVIDERS: Visit Provider Orthopaedic Surgery
DX: M25.531 Pain in right wrist (principal)
CPT/HCPCS: 73110

== ENCOUNTER → 2021-12-25 13:01 | Outpatient (BNVA) | payer MEDICARE, SELFPAY | PROVIDERS: PCP Family Medicine; Visit Provider Orthopaedic Surgery | DX: M25.531 Pain in right wrist (principal); S52.501A Unspecified fracture of the lower end of right radius, initial encounter for closed fracture ==

== ENCOUNTER → 2022-01-29 11:19 | Outpatient (BNVA) | payer MEDICARE, SELFPAY | PROVIDERS: PCP Family Medicine; Visit Provider Orthopaedic Surgery | DX: Z13.89 Encounter for screening for other disorder (principal) | CPT/HCPCS: 99212 ==

== ENCOUNTER 2022-01-31 10:00 | Outpatient (RCR) | payer MEDICARE, SELFPAY ==
--- NOTE | 2022-01-29 11:18 | MHC.OT.OP ---
[address] [phone] F: [phone] Occupational Therapy Progress Note Diagnosis: Right DR ORIF Date of Surgery: 11/22/21 Date of Evaluation: 12/17/21 Treatments to Date: 12 Cancellations to Date: No Shows to Date: Subjective: Pt reports Improving with avoiding heavy use and con't mild difficulty with self feeding and brushing her teeth, Has not been driving Pain Score: 4 Pain Location: right ulnar wrist and small finger Objective Measures: 12/25/21 AROM Wrist ext 10 flexion 15 rad/ ulnar dev 3/10 pronation 40 supination 30 MCPs PIPs DIPs Passive ext to neutral . D5 35 deg 01/11/22 40 30 06/29 50 55 ~65 ~95 50 01/21/22 50 post rx 60, 50 01/24/22 50 40 Medical Practice Manager R 20 lb L 42 lb 01/29/22 50 Post rx 55 40 post rx 45 Status: Progressing Assessment: 9 wks s/p right ORIF for fx. Wrist ROM slow improvement , gains made in OT not carried over to next appointment. Hand ROM WFL. Strength improving. Continued mild difficulty with brushing teeth and feeding self. Extensive time for pt ed and practice with ther ex. Short Term Goals: Demo indep with HEP MET Demo digits to DPC MET Light use of right hand with ADL with modifications as needed MET Use of wrist orthosis for protection only MET Prep Manager Goals: Right Forearm supination > 60 deg MET Right wrist ext > 60 deg Right wrist flex to > 55 deG Medical Practice Manager strength to > 20 lb Mild difficulty with daily activities with modifications as needed MET Quick DASH to < 20 pts Frequency and Duration: The patient will be seen 1x then D/c Treatment Plan: Therapeutic Exercise Home Exercise Program Patient Education Pt has travel plans Electronically Signed By: Qiana Muñoz OT CHT CLT Reviewed/agree with student documentation: Therapist:
--- NOTE | 2022-01-31 11:12 | MHC.OT.DC ---
[address] [phone] F: [phone] Occupational Therapy Discharge Note Provider: Char Bo Diagnosis: Right DR ORIF Date of Surgery: 11/22/21 Date of Evaluation: 12/17/21 Date of Discharge: 01/31/22 Treatments to Date: 13 Cancellations to Date: No Shows to Date: Discharge Status: Achieved Goals Improved Function Independent with HEP Discharge Summary: 9 wks s/p right ORIF for DR peacock. Wrist ROM improvement after ther ex, pt demonstrates potential for continued improvement in ROM and strength. Cont difficulty maintaining ROM gains made in OT. Hand ROM WFL. Strength improving. Continued mild difficulty with functional activities ie brushing teeth and feeding self due to ROM impairments and con't wrist pain at end ranges Pt will benefit from continued HEP to achieve maximum function. Electronically Signed By: Qiana Muñoz OT CHT CLT Reviewed/agree with student documentation: Therapist: Please Sign and return to therapist, thank you for your referral.
== END 2022-01-31 15:51 | disposition home or self-care (01) ==
LOC: HO.OT 10:00
PROVIDERS: PCP Family Medicine; Visit Provider Orthopaedic Surgery
DX: S52.501A Unspecified fracture of the lower end of right radius, initial encounter for closed fracture (principal)
CPT/HCPCS: 97035; 97110; 97140; 97166

== ENCOUNTER 2022-07-31 09:00 | Outpatient (RCR) | payer MEDICARE, SELFPAY | END 2022-07-31 15:25 | disposition home or self-care (01) | LOC: HO.PTCHIC 09:00 | PROVIDERS: PCP Family Medicine; Visit Provider Pediatrics | DX: M62.830 Muscle spasm of back (principal); M25.552 Pain in left hip | CPT/HCPCS: 97110; 97112; 97140; 97161; 97530 ==

== ENCOUNTER 2022-10-02 15:00 | Outpatient (RCR) | payer MEDICARE, SELFPAY | END 2022-10-02 16:16 | disposition home or self-care (01) | LOC: HO.PTCHIC 15:00 | PROVIDERS: PCP Family Medicine; Visit Provider Family Medicine | DX: M54.50 Low back pain, unspecified (principal); M25.552 Pain in left hip; M25.562 Pain in left knee | CPT/HCPCS: 97110; 97140; 97162; 97530 ==

== ENCOUNTER 2023-04-01 10:00 | Outpatient (RCR) | payer MEDICARE, SELFPAY | END 2023-07-22 15:50 | disposition home or self-care (01) | LOC: HO.PT 10:00 | PROVIDERS: PCP Family Medicine; Visit Provider Physical Medicine & Rehabilitation | DX: M46.1 Sacroiliitis, not elsewhere classified (principal) | CPT/HCPCS: 97110; 97140; 97161 ==

== ENCOUNTER 2024-02-09 10:11 | Outpatient (RCR) | payer MEDICARE, SELFPAY | END 2024-04-13 09:01 | disposition home or self-care (01) | LOC: HO.PT 10:11 | PROVIDERS: PCP Family Medicine; Visit Provider Family Medicine | DX: M54.16 Radiculopathy, lumbar region (principal) | CPT/HCPCS: 97110; 97140; 97162 ==

== ENCOUNTER 2024-06-30 10:55 | Outpatient (RCR) | payer MEDICARE, SELFPAY | END 2024-06-30 17:23 | disposition home or self-care (01) | LOC: HO.PT 10:55 | PROVIDERS: PCP Family Medicine; Visit Provider Family Medicine | DX: M51.16 Intervertebral disc disorders with radiculopathy, lumbar region (principal) | CPT/HCPCS: 97110; 97140; 97161 ==